=== PATIENT | female | born 1980 | race Caucasian/White ===

== ENCOUNTER 2025-01-05 17:03 | Emergency (ER) | payer OTHER, SELFPAY ==
--- NOTE | ~2025-01-05 | XR_ITS ---
CLINICAL HISTORY: pain, injury 3 view right elbow Comparison: None Findings: Bones intact. No dislocations. No significant arthritic change or erosions. No joint effusion. No radiopaque foreign body. IMPRESSION: 1. No acute findings This document has been electronically signed by: Lindsey Suero MD on 01/05/2025 18:51:37
[2025-01-05 17:57] VITALS: BP 144/95; PULSE 102; RESP 18; TEMP 37.2; O2SAT 96; BMI 24.5
--- NOTE | 2025-01-05 18:01 | ED_ITS ---
HPI - General Adult General Chief complaint: Animal Bite Stated complaint: right arm; right hand wound dog bite Time Seen by Provider: 01/05/25 20:31 Source: patient Mode of arrival: ambulatory Limitations: no limitations History of Present Illness ED Provider: Hilary Arias PA-C HPI narrative: Patient is a 44 year old assigned female at with no reported medical history presenting to the emergency department today with right elbow pain. Patient states that her dog was attached by another dog who she is unfamiliar with. Patient states that she attempted to separate them and got scratched and bit by the dog to her right elbow / inner arm and lower arm. Patient states that she is not sure when her last tetanus shot was. Patient denies any dizziness, lightheadedness, abdominal pain, nausea, vomiting, fever, chills, blurry vision, double vision, loss of vision, chest pain, difficulty breathing, shortness of breath, back pain, night sweats, pain with urination, increased urinary frequency, increased urinary urgency, blood in her urine or stool, syncope or a near syncopal episode, bowel incontinence, bladder incontinence, or any other complaints at this time. Location: right and upper extremity Relieving factors: none Exacerbating factors: none Associated symptoms: denies other symptoms Treatments prior to arrival: none Related Data Previous Rx's ?Medication ?Instructions ?Recorded amoxicillin 875 mg-potassium 1 tab PO BID 10 days #20 tabs 01/05/25 clavulanate 125 mg tablet Allergies Allergy/AdvReac Type Severity Reaction Status Date / Time No Known Allergies Allergy Verified 01/05/25 17:59 [No Known Allergies*] Review of Systems Constitutional: Constitutional: Reports no additional constitutional complaints, Denies chills, Denies fever(s) and Denies night sweats Eyes: Eyes: Reports no additional eye complaints, Denies blurry vision, Denies change in vision, Denies diplopia, Denies eye discharge, Denies loss of vision and Denies eye pain ENT: Denies dizziness Cardiovascular: Cardiovascular: Reports no additional cardiovascular complaints, Denies chest pain, Denies lightheadedness, Denies Loss of Consciousness and Denies dyspnea Respiratory: Respiratory: Reports no additional respiratory complaints and Denies dyspnea Gastrointestinal: Gastrointestinal: Reports no additional gastrointestinal complaints, Denies abdominal pain, Denies melena, Denies hematochezia, Denies change in bowel habits and Denies change in stool character Genitourinary: Genitourinary: Denies hematuria, Denies urinary frequency, Denies dysuria, Denies urinary incontinence, Denies urinary hesitancy and Denies urinary urgency Musculoskeletal: Musculoskeletal: Reports no additional musculoskeletal complaints, Denies numbness and Denies tingling Comments: dog bite / scratches to the right upper and lower arm + elbow Neurologic: Denies dizziness, Denies loss of vision, Denies numbness and Denies tingling Psychiatric: Psychiatric: Reports no additional psychiatric complaints Endocrine: Endocrine: Reports no additional endocrine complaints Hematologic/Lymphatic: Hematologic/Lymphatic: Reports no additional hematologic/lymphatic complaints Allergic/Immunologic: Allergic/Immunologic: Reports no additional allergic/immunologic complaints PMF Past Medical History Attestation statement: The following information was validated with the patient. Source: old records reviewed and nursing notes reviewed Social History Social History Alcohol intake: current Alcohol intake frequency: a few times a week Smoked in Last 30 Days: No Use of substances other than those prescribed or required for medical reasons: No Advance Directives: No Advance Directives Information Provided: No Physical Exam ED Vital Signs: Vital Signs - 24 hr 01/05/25 17:57 01/05/25 20:52 01/05/25 21:41 Temperature 99.0 F 98.7 F 98.7 F Pulse Rate 102 H 82 82 Respiratory Rate 18 20 20 Blood Pressure 144/95 H 172/102 H 172/102 H Pulse Oximetry 96 99 99 Oxygen Delivery Method Room Air Room Air BMI result Body Mass Index 24.5 Const General: cooperative, no acute distress, alert and awake Nutritional Appearance: well nourished Orientation/consciousness: patient oriented x3 Limitations: no limitations [facility] Head: Yes normal to inspection and Yes atraumatic Ears: hearing grossly normal bilaterally and external ears normal General nose exam: Normal external nose present, no nasal discharge noted and no epistaxis Face and sinus: Yes normal facial exam, No abrasion and No laceration Mouth: Normal oral and palatal mucosa present, no drooling and no muffled voice Eyes General: appearance normal, both eyes and all related structures Periorbital: periorbital findings normal Eyelids: Yes eyelids normal Conjunctivae: conjunctivae normal Pupils: Equal, round and reactive pupils present EOM: EOMs intact bilaterally Neck Neck: Yes normal visual inspection, Yes full ROM and Yes no lymphadenopathy Chest Chest palpation & inspection: normal inspection of the chest Resp Effort & Inspection: normal respiratory effort and able to speak in complete sentences GI Inspection: Yes normal to inspection Neuro General: patient oriented x3, moves all extremities and CN's II-XI intact bilaterally Cranial nerves: Yes Equal, round and reactive pupils present Cognition (Neuro): normal cognition Extrem Other: multiple superficial scratches to the dorsal aspect of the right forearm small puncture wound present to the medial aspect of the right upper arm just superior of the right elbow General: Yes full ROM and Yes capillary refill normal Psych Appearance: grossly normal Mental Status: mental status grossly normal Affect: normal affect Attitude: cooperative Thought process: Normal thought process present Thought content: Normal thought content present Insight: Good insight present (Psych) Course Course Course Narrative: RME performed by Hilary Arias PA-C. Patient is a 44 year old assigned female at presenting to the emergency department with right arm pain. Patient states she split up her dog and a neighbor dog got into it and she had to split them apart and got bit and scratched on her right elbow. Patient states that she does not know the shot status of the other dog and she does not know her last tetanus. Detailed physical exam and review of systems are deferred to the book trimmer. Imaging ordered. Patient placed back in the waiting room pending room availability and results. Medications Administered Discontinued Medications Generic Name Dose Route Start Last Admin Trade Name Freq PRN Reason Stop Dose Admin Amoxicillin/Clavulanate Potassium 875 mg 01/05/25 20:31 01/05/25 21:22 Amoxicillin/Potassium Clav 875 Mg Tablet PO 01/05/25 20:32 875 mg ONCE ONE Administration Diphtheria/Tetanus/Acell Pertussis 0.5 ml 01/05/25 18:02 01/05/25 21:21 Diphth,Pertus(Acell),Tet Adult 0.5 Ml Syringe IM 01/05/25 18:03 0.5 ml .ONCE ONE Administration Rabies Immune Globulin 1,418 unit 01/05/25 20:31 01/05/25 21:12 Rabies Immune Globulin/Pf 900 Unit/3 Ml Vial 20 unit/kg (1418 unit) 01/05/25 20:32 1,418 unit IM Administration ONCE ONE Rabies Vaccine 1 ml 01/05/25 20:31 01/05/25 21:25 Rabies Vaccine (Pcec)/Pf 1 Ml Vial IM 01/05/25 20:32 1 ml .ONCE ONE Administration Medical Decision Making Medical Decision Making MDM Narrative: Patient is a 44 year old assigned female at with no reported medical history presenting to the emergency department today with right elbow pain. Patient's physical exam was as noted in the physical exam portion of this note. Patient's right elbow x-ray showed no acute process. I explained my physical exam findings as well as all test results to the patient. I answered all questions asked by the patient. Patient's right upper extremity PMS was present and intact. Patient's puncture wound was small and not gaping. Patient's wounds were thoroughly washed. Patient was given rabies + tetanus prophylaxis / vaccination. I stressed the importance of the patient taking her medication as directed (either prescribed or as the over the counter packaging recommends). I stressed the importance of the patient following up with her primary care provider. I stressed the importance of the patient returning to the emergency department immediately if her symptoms were to worsen or if she were to develop any dizziness, shortness of breath, difficulty breathing, chest pain, blurry vision, loss of vision, nausea, vomiting, abdominal pain, fever, chills, back pain, or any other complaints. Patient verbalized agreement and understanding with this treatment plan and discharge. Differential Diagnosis Differential Diagnoses: The differential diagnosis associated with the presentation includes Right forearm pain Right arm pain Dog bite Dog scratch Admission/Observation Consideration of admission/observation: Escalation of care including admission/observation considered Patient would have been admitted to the hospital had her work up had any findings where hospital admission was appropriate and her clinical presentation warranted hospital admission. Independent Interpretation I performed an independent interpretation of an: Plain X-Ray Interpretation: My interpretation is in agreement with the radiologist's impression of this imaging study. CLINICAL HISTORY: pain, injury 3 view right elbow Comparison: None Findings: Bones intact. No dislocations. No significant arthritic change or erosions. No joint effusion. No radiopaque foreign body. IMPRESSION: 1. No acute findings This document has been electronically signed by: Lindsey Suero MD on 01/05/2025 18:51:37 Dictated By: Lindsey Suero MD Signed By: Electronically signed by Lindsey Suero MD 01/05/25 1687 Radiology Impression Discussion of test interpretation with radiology: I have reviewed the radiologist's reading. Prescription Management I considered prescription management with: Antibiotic (patient prescribed a prophylactic antibiotic) Discharge Plan Discharge Clinical Impression: Rabies exposure, Dog bite Patient Disposition: Home, Self-Care Instructions: Animal Bite (ED), Rabies (ED) Additional Instructions: Take your antibiotic as prescribed. Keep the wound clean. Do NOT soak the affected area. Follow up with your primary care provider. Return to the emergency department immediately if your symptoms worsen or if you develop any numbness, tingling, dizziness, shortness of breath, difficulty breathing, chest pain, blurry vision, loss of vision, nausea, vomiting, abdominal pain, fever, chills, back pain, or any other complaints. You should get a call from the Infusion Center to schedule an appointment to receive the remainder of your required Rabies Vaccines. You will need a total of 3 more injections. If for some reason you do not receive a call from the infusion center - please call them at [phone]. Follow up with your primary care provider after completion of the vaccine to have a titer drawn to ensure the vaccines effectiveness. Please see the information below about our Patient Portal. If you are not yet enrolled in the [facility] Patient Portal, you will receive an enrollment email invitation following your visit to any [facility] care setting. You may also self-enroll in the Patient Portal by visiting our website: [email or web address] The following information is required to access the Patient Portal: - Your [facility] Medical Record Number - Your personal home email address (must match what is in your electronic medical record, Registration staff can assist with this) - Name - Date of Capabilities of the Patient Portal: - Message some providers - View upcoming appointments - Access your health summary, medical history, and visit history - View current conditions and allergies - View procedure and lab results - View your medications, including guidelines, side effects, and precautions - Complete pre-appointment questionnaires requested by your provider - Ready summary reports of your office visits and procedures To access the Patient Portal Mobile Mami, follow these directions: - Search [employer] in the Mami Store or [employer] Store - Download the Mami - Search for [facility] - Enter your login/password Prescriptions: New amoxicillin-pot clavulanate 875-125 mg tablet 1 tab PO BID 10 Days Qty: 20 0RF Referrals: Parrish Rice III, MD [Primary Care Provider] - Interventions: ED Discharge Assessment Last Done: 01/05/25 21:41 Discharge Date/Time: 01/05/25 21:42 Print Language: Turkish
--- OUTSIDE RECORDS SUMMARY | 2025-01-05 20:24 | XMS_ITS | Clinical Summary ---
Author Organization [facility] Address [address] [place] [address] Care Team Providers Care Contour Band Saw Operator Vertical Name Role Phone Parrish Rice MD Primary Care Provider [phone] Allergies No known active allergies Medications Medication Sig Dispensed Refills Start Date End Date Status sertraline (ZOLOFT) 50 MG tablet Take 50 mg by mouth daily. 0 Active traZODone (DESYREL) 50 MG tablet Take 50 mg by mouth every night at bedtime. 0 Active hydrOXYzine (ATARAX) 50 MG tablet Take 50 mg by mouth 3 (three) times a day as needed. 0 Active Selenium Sulfide 2.25 % SHAM Apply topically. 0 Active amLODIPine (NORVASC) tablet 2.5 mg Take 2.5 mg by mouth daily. 0 Active Active Problems No known active problems Social History Tobacco Use Types Packs/Day Years Used Date Smoking Tobacco: Every Day Smokeless Tobacco: Never Alcohol Use Standard Drinks/Week Comments Yes 0 (1 standard drink = 0.6 oz pur e alcohol) Sex and Gender Information Value Date Recorded Sex Assigned at Not on file Gender Identity Not on file Sexual Orientation Not on file Job Start Date Occupation Industry Not on file Not on file Not on file Last Filed Vital Signs Vital Sign Reading Time Taken Comments Blood Pressure 152/79 02/24/2022 2:14 PM EDT Pulse 92 02/24/2022 2:14 PM EDT Temperature 36.8 ??C (98.2 ??F) 02/24/2022 2:14 PM ED T Respiratory Rate - - Oxygen Saturation 100% 02/24/2022 2:14 PM EDT Inhaled Oxygen Concentration - - Weight 56.7 kg (125 lb) 02/24/2022 2:14 PM EDT Height 167.6 cm (5' 6 ) 04/01/2020 2:57 PM EDT Body Mass Index 20.18 04/01/2020 2:57 PM EDT Plan of Treatment Health Maintenance Due Date Last Done Comments Hepatitis B Vaccines (1 of 3 - 3-dose series) 1982 Hepatitis C Screening 1982 Pneumococcal Vaccine (1 of 2 - PCV) 1988 Depression Screening 1994 Preventative Health Evaluation 2000 DTap / Tdap / Td (1 - Tdap) 2001 Cervical Cancer Screening (Pap Smear) 2003 COVID-19 Vaccine (4 - 2023-2 5 season) 2024 09/02/2021, 02/13/2021, 01/23/2021 Influenza Vaccine (#1) 2024 RSV Ped < 20 months Aged Out No longe r eligible based on patient's age to complete this topic Care Teams Contour Band Saw Operator Vertical Relationship Specialty Start Date End Date Parrish Rice MD PCP - General Internal Medicine 02/28/20
--- OUTSIDE RECORDS SUMMARY | 2025-01-05 20:24 | XMS_ITS | Clinical Summary ---
Author Organization [facility] [address] [place] [address] [place] [phone] Phone Care Team Providers Care Dockworker Name Role Phone Parrish Rice MD Primary Care Provider [phone] Allergies No known active allergies Medications bisacodyL (DULCOLAX) 5 mg EC tablet Take 1 tablet (5 mg total) by mouth 1 (one) time each day if needed for constipation. Take 2 tabs by mouth right before beginning bowel prep. Follow instructions given by office for timing. 12/23/19 24 Active hydrOXYzine HCL (ATARAX) 25 mg tablet Take 1 tablet (25 mg total) by mouth 3 (three) times a day if needed for anxiety. 03/01/20 24 Active selenium sulfide (SELSUN) 2.5 % lotion Apply topically 1 (one) time each day if needed. 12/03/19 23 Active traZODone (DESYREL) 100 mg tablet Take 1 tablet (100 mg total) by mouth at bedtime as needed for sleep. 03/01/20 24 Active sertraline (ZOLOFT) 100 mg tablet TAKE 1 TABLET BY MOUTH EVERY DAY 90 tablet 1 09/13/20 24 Active amLODIPine (NORVASC) 5 mg tablet TAKE 1 TABLET BY MOUTH EVERY DAY 90 tablet 1 09/13/20 24 Active QUEtiapine (SEROquel) 25 mg tablet TAKE 2 TABLETS BY MOUTH AT BEDTIME. 180 tablet 1 12/26/19 25 Active QUEtiapine (SEROquel) 25 mg tablet Take 2 tablets (50 mg total) by mouth at bedtime. 180 tablet 09/06/20 24 025 Discontinued Active Problems Problem Noted Date Diagnosed Date Nexplanon in place 07/28/2022 Overview (07/19/2024): Last Assessment & Plan: I reviewed the x-rays of the left arm with the patient, inform the patient that the Nexplanon device is not present based on x-ray. I discussed that rarely, the Nexplanon can migrate and therefore I recommend chest x-ray for further evaluation. The patient became very emotional but did agree to complete the x-ray. Secondary oligomenorrhea 07/28/2022 Overview (07/19/2024): Last Assessment & Plan: Today we discussed causes of secondary oligo and amenorrhea including , thyroid disease, PCOS, hyperprolactinemia, and ovarian failure. HCG, TSH, testosterone, and prolactin ordered. The patient was instructed to follow-up to discuss x-ray and lab results in 2-3 weeks. Papanicolaou smear of cervix with low grade squamous intraepithelial lesion (LGSIL) 01/30/2022 Overview (07/19/2024): 01/15/2022 LSIL HR HPV neg Hypertension 12/29/2021 Alcohol abuse, in remission 12/08/2021 Erythrocytosis 12/08/2021 Insomnia 06/12/2020 Anxiety and depression 11/21/2019 PTSD (post-traumatic stress disorder) 11/21/2019 Seasonal affective disorder 11/21/2019 Anxiety 01/13/2013 Immunizations Name Administration Dates Next Due Influenza Quadravalent, MDCK , 0.5ml, preservative free (Flucelvax) 6mo and older 08/02/2023 Influenza Quadravalent, MDCK , 0.5ml, with preservative (Flucelvax) 6mo and older 09/21/2022 Pfizer (ages 12 & older) Bivalent, COVID-19 06/2022 Td Tetanus diptheria (Tdvax) 7yo and older 11/13 Surgical History Surgery Date Site/Laterality Comments WISDOM TOOTH EXTRACTION PROCEDURE: HISTORICAL WISDOM TEETH EXTRACTION; COMMENT: 3rd molar Medical History Medical History Date Comments Depression DX:Depression Anxiety DX:Anxiety Seasonal affective disorder (CMS/HCC) DX:Seasonal affective disorder (HCC) PTSD (post-traumatic stress disorder) DX:PTSD (post-traumatic stress disorder) Insomnia DX:Insomnia Family History Medical History Relation Name Comments Brain cancer Aunt Other: epilepsy Father Other: Bone Cancer Maternal Grandfather Hypertension Maternal Grandmother Other: laser tx for cervix Mother a lcoholic Breast cancer Neg Hx Ovarian cancer Neg Hx Uterine cancer Neg Hx Relation Name Status Comments Aunt Father Maternal Grandfather Maternal Grandmother Mother Social History Tobacco Use Types Packs/Day Years Used Date Smoking Tobacco: Every Day Cigarettes 0.8 27.3 Started: 10/04/1997 Smokeless Tobacco: Never Alcohol Use Standard Drinks/Week Comments Yes 0 (1 standard drink = 0.6 oz pur e alcohol) Comments Unknown Sex and Gender Information Value Date Recorded Sex Assigned at Not on file Legal Sex Female 10:10 PM EST Gender Identity Not on file Sexual Orientation Not on file Obstetrics History Last Filed Vital Signs Vital Sign Reading Time Taken Comments Blood Pressure 138/96 03/02/2024 1:17 PM EDT provider will rechk Pulse 88 03/02/2024 1:17 PM EDT Temperature - - Respiratory Rate - - Oxygen Saturation - - Inhaled Oxygen Concentration - - Weight 65.3 kg (144 lb) 03/02/2024 1:17 PM EDT Height 170.2 cm (5' 7 ) 03/02/2024 1:17 PM EDT Body Mass Index 22.55 03/02/2024 1:17 PM EDT Plan of Treatment Upcoming Encounters Date Type Department Care Team (Late st Contact Info) Description 01/18/2025 8:10 AM EDT Appointment Radiology Department - [address] [phone] 07/05/2025 1:00 PM EDT Office Visit Adult Medicine [address] [phone] Parrish Rice MD [address] [place] [phone] Health Maintenance Due Date Last Done Comments Hepatitis B Vaccines (1 of 3 - 19+ 3-dose series) 2001 Pneumococcal Vaccine: Pediatrics (0 to 5 Years) and At-Risk Patients (6 to 64 Years) (1 of 2 - PCV) 2001 Social Influencers of Health Screening 09/12/2022 COVID-19 Vaccine ( - season) 2024 08/12/2022, 09/02/2021, 02/13/2021, Additional history exists Influenza Vaccine (#1) 2024 08/02/2023, 2021 Depression Screening 03/02/2025 03/02/2024 Hypertension/CHF/CAD Annual BMP Blood Test 05/09/2025 05/09/2024, 05/09/2024 Breast Cancer Screening 01/06/2026 01/07/2024 DTaP,Tdap,and Td Vaccines (2 - Td or Tdap) 11/13/2026 11/13/2016 Cholesterol Screening (Lipid Panel) 08/09/2028 08/09/2023 Cervical Cancer Screening: HPV 08/11/2028 08/11/2023 HIV Screening Completed 01/19/2022 Hepatitis C Screening Completed 01/19/2022 HIB Vaccines Aged Out No longer eligi ble based on patient's age to complete this topic HPV Vaccines Aged Out No longer eligi ble based on patient's age to complete this topic Hepatitis A Vaccines Aged Out No long er eligible based on patient's age to complete this topic IPV Vaccines Aged Out No longer eligi ble based on patient's age to complete this topic MMR Vaccines Aged Out No longer eligi ble based on patient's age to complete this topic Meningococcal ACWY Vaccine Aged Out N o longer eligible based on patient's age to complete this topic Meningococcal B Vacine Aged Out No lo nger eligible based on patient's age to complete this topic RSV Immunization Patients Under 20 months Aged Out No longer eligible based on patient's age to complete this topic Varicella Vaccines Aged Out No longer eligible based on patient's age to complete this topic Procedures Procedure Name Priority Date/Time Associated Diagnosis Comments ANNUAL BMP BLOOD TEST Routine 05/09/2024 DEPRESSION SCREENING Routine 03/02/2024 SCREENING MAMMOGRAPHY BI 2-VIEW BREAST INC CAD Routine 01/07/2024 8:05 AM EDT Essential (primary) hypertension Anxiety disorder, unspecified Depression, unspecified Insomnia, unspecified Nicotine dependence, cigarettes, uncomplicated HPV Routine 08/11/2023 LIPID PANEL Routine 08/09/2023 HEPATITIS C SCREENING Routine 01/19/2022 HIV SCREENING Routine 01/19/2022 from Last 3 Months or Most Recently Relevant to Health Maintenance Results * Annual BMP Blood Test (05/09/2024) Annual BMP Blood Test Abstracted Historical Provider HEALTH MAINTENANCE Final Result * Depression Screening (03/02/2024) Depression Screening Abstracted Historical Provider HEALTH MAINTENANCE Final Result * SCREENING MAMMOGRAPHY BI 2-VIEW BREAST INC CAD (01/07/2024 8:05 AM EDT) Anatomical Region Laterality Modality Radiographic Rebecca ging 08/02/2023 1:39 PM EDT Narrative 01/07/2024 1:16 PM EDT This is a summary report. The complete report is available in the patient's medical record. If you cannot access the medical record, please contact the sending organization for a detailed fax or copy. Full field digital baseline tomosynthesis mammography, reviewed with CAD. The breast tissue is heterogeneously dense, limiting sensitivity. No suspicious mass, architectural distortion or suspicious calcifications are identified. IMPRESSION: : Dense breast tissue, limiting the sensitivity of mammography. No mammographic evidence of malignancy. BIRADS 1-Negative; N. 5 year breast cancer risk assessment 0.6 % Lifetime breast cancer risk assessment 9.8 % Breast cancer risk category Low (<15%) Procedure Note Anna Duncan MD - 05/22/2024 This is a summary report. The complete report is available in thepatient's medical record. If you cannot access the medical record, pleasecontact the sending organization for a detailed fax or copy. Full field digital baseline tomosynthesis mammography, reviewed with CAD.The breast tissue is heterogeneously dense, limiting sensitivity. Nosuspicious mass, architectural distortion or suspicious calcifications areidentified. IMPRESSION: : Dense breast tissue, limiting the sensitivity of mammography. Nomammographic evidence of malignancy. BIRADS 1-Negative; N. 5 year breast cancer risk assessment 0.6 % Lifetime breast cancer risk assessment 9.8 % Breast cancer risk category Low (<15%) Result [facility] Katelyn HARO IMG XR PROCEDURES Final Resul t * Cervical Cancer Screening: HPV (08/11/2023) [facility] Cervical Cancer Screening: HPV Negative, abstracted Result [facility] Provider HEALTH MAINTENANCE Final Result * (ABNORMAL) Lipid panel (08/09/2023) [facility] LDL/HDL Ratio 3 0 - 4 Triglycerides 218(A) 0 - 150 mg/dL Cholesterol 193 0 - 200 mg/dL HDL 72 >=40 mg/dL LDL Cholesterol 78 0 - 100 mg/dL Blood Venous blood specimen / Unknown Result [facility] Provider LAB BLOOD ORDERABLES Katelin l Result * HIV Screening (01/19/2022) [facility] HIV Screening Abstracted Result [facility] Provider HEALTH MAINTENANCE Final Result * Hepatitis C Screening (01/19/2022) [facility] Hepatitis C Screening Abstracted Result [facility] Provider HEALTH MAINTENANCE Final Result from Last 3 Months or Most Recently Relevant to Health Maintenance Insurance [facility] [place] [phone] Care Teams Dockworker Relationship Specialty Start Date End Date Parrish Rice MD [address] [place] [phone] PCP - General Internal Medicine 10/25/12
[2025-01-05 20:52] VITALS: BP 172/102; PULSE 82; RESP 20; TEMP 37.1; O2SAT 99
[2025-01-05] MEDS: Rabies Immune Globulin/PF 900 UNIT/3 ML VIAL 1418 UNIT IM (21:12)
[2025-01-05] MEDS: Diphth,Pertus(ACell),Tet Adult 0.5 ML SYRINGE IM (21:21)
[2025-01-05] MEDS: Amoxicillin/Potassium Clav 875 MG TABLET PO (21:22)
[2025-01-05] MEDS: Rabies Vaccine (PCEC)/PF 1 ML VIAL IM (21:25)
--- NOTE | 2025-01-05 21:37 | PC.NURSE ---
pt medicated according to octavia pt provided with form with dates for next rabies injections animal control form faxed to [facility] animal officer pt verbalized understanding of discharge plan pt ambulatory at discharge
[2025-01-05 21:41] VITALS: BP 172/102; PULSE 82; RESP 20; TEMP 37.1; O2SAT 99
== END 2025-01-05 21:42 | disposition home or self-care (01) ==
PROVIDERS: Emergency Provider Emergency Medicine Emergency Medical Services; PCP Internal Medicine
DX: S51.051A Open bite, right elbow, initial encounter (principal); S51.851A Open bite of right forearm, initial encounter; S41.151A Open bite of right upper arm, initial encounter; W54.0XXA Bitten by dog, initial encounter; Y93.9 Activity, unspecified; Y92.9 Unspecified place or not applicable; Y99.9 Unspecified external cause status; Z23 Encounter for immunization; Z20.3 Contact with and (suspected) exposure to rabies
CPT/HCPCS: 73080; 90375; 90471; 90675; 90715; 96372; 99284

== ENCOUNTER → 2025-01-05 18:02 | Outpatient (BNV) | payer OTHER, SELFPAY | PROVIDERS: PCP Internal Medicine; Visit Provider Radiology Diagnostic Radiology | DX: M25.521 Pain in right elbow (principal) | CPT/HCPCS: 73080 ==

== ENCOUNTER 2025-08-04 18:10 | Inpatient (IN) | payer OTHER, SELFPAY ==
--- NOTE | ~2025-08-04 | US_ITS ---
CLINICAL HISTORY: liver ultrasound, alcoholic hepatitis US abdomen limited Comparison: None provided Findings: The pancreas is not well visualized, obscured by bowel-gas The liver is enlarged with increased echogenicity consistent with hepatic steatosis. There is no intrahepatic bile duct dilatation. The common duct is 5 mm in diameter. The gallbladder contains layering echogenic sludge. There is no sonographic Stack sign. The main portal vein is antegrade. The right kidney is 10.6 cm in length. No ascites. IMPRESSION: Cholelithiasis without findings of cholecystitis. Hepatic steatosis. This document has been electronically signed by: Minh Luu MD on 08/05/2025 12:28:45
[2025-08-04 18:18] VITALS: BP 117/84; BP 140/90; PULSE 115; PULSE 130; RESP 17; TEMP 36.7; O2SAT 98; BMI 25.8
--- NOTE | 2025-08-04 18:27 | ECG_ITS ---
Test Reason : weakness Blood Pressure : */* mmHG Vent. Rate : 108 BPM Atrial Rate : * BPM P-R Int : * ms QRS Dur : 88 ms QT Int : 502 ms P-R-T Axes : * 72 76 degrees QTcB Int : 672 ms Sinus tachycardia cannot exclude old Anterior infarct , age undetermined ST depression infeior and anterolateral leads Prolonged QT Abnormal ECG No previous ECGs available Referred By: Marion García Electronically Signed By: JOSE CALLES
[2025-08-04 18:28] VITALS: BP 117/84; PULSE 115; RESP 17; TEMP 36.7; O2SAT 98
[2025-08-04] MEDS: diazePAM 10 MG/2 ML CARTRIDGE 5 MG IVPUSH (18:41)
[2025-08-04] MEDS: Thiamine HCL 200 MG in 0.9 % Sodium Chloride 100 ML 204 MG IV (18:45)
[2025-08-04] MEDS: Lactated Ringers 1,000 ML 999 ML IV (18:48)
[2025-08-04] MEDS: Magnesium Sulfate/H2O 2 GM/50 ML PIGGYBACK IV (18:53)
--- OUTSIDE RECORDS SUMMARY | 2025-08-04 18:56 | XMS_ITS | Clinical Summary ---
Author Organization [facility] Address [address] [place] [address] Care Team Providers Care Program Instructor Name Role Phone Parrish Rice MD Primary Care Provider [phone] Allergies No known active allergies Medications Medication [...] 92 02/24/2022 2:14 PM EDT Temperature 36.8 C (98.2 F) 02/24/2022 2:14 PM EDT Respiratory Rate - - Oxygen Saturation 100% [...] (Pap Smear) 2003 COVID-19 Vaccine (4 - 2024-2 6 season) 2025 09/02/2021, 02/13/2021, 01/23/2021 Influenza Vaccine (#1) 2025 RSV Ped < 20 months Aged Out No longe r eligible based on patient's age to complete this topic Care Teams Program Instructor Relationship Specialty Start Date End Date Parrish Rice MD PCP - General Internal Medicine 02/28/20
--- OUTSIDE RECORDS SUMMARY | 2025-08-04 18:56 | XMS_ITS | Clinical Summary ---
Author Organization [facility] [address] [facility] Address [address] [place] [address] Phone Care Team Providers Care Aquaculture Farm Manager Name Role Phone Parrish Rice MD Primary Care Provider [phone] Allergies No known active allergies Medications diclofenac (VOLTAREN) 1 % topical gel APPLY 2 GRAM FOUR TIMES DAILY TO AFFECTED JOINT 100 g 5 5 Active hydrOXYzine HCL (ATARAX) 25 mg tablet TAKE 1 TABLET (25 MG TOTAL) BY MOUTH 3 TIMES A DAY NEEDED FOR ANXIETY 90 tablet 5 Active amLODIPine (NORVASC) 5 mg tablet Take 1 tablet (5 mg total) by mouth 1 (one) time each day. 90 tablet 1 5 Active sertraline (ZOLOFT) 100 mg tablet Take 1 tablet (100 mg total) by mouth 1 (one) time each day. 90 tablet 1 5 Active selenium sulfide (SELSUN) 2.5 % lotion Apply topically 1 (one) time each day if needed for itching, irritation or dandruff. 118 mL 1 5 Active traZODone (DESYREL) 100 mg tablet Take 1 tablet (100 mg total) by mouth at bedtime as needed for sleep. 30 tablet 1 5 Active QUEtiapine (SEROquel) 25 mg tablet TAKE 3 TABLETS BY MOUTH AT BEDTIME. 270 tablet 5 Active Active Problems Problem Noted Date Diagnosed Date [...] (post-traumatic stress disorder) 11/21/2019 Seasonal affective disorder ([facility] V24) 2019 Anxiety 01/13/2013 Immunizations Immunization Administration Dates Next Due Human Rabies, Human Diploid Cell Culture, (Imovax) 01/26/2025,01/15/2025,01/11/2025 Influenza Quadravalent, MDCK , 0.5ml, preservative free (Flucelvax) 6mo and older 08/02/2023 Influenza Quadravalent, MDCK , 0.5ml, with preservative (Flucelvax) 6mo and older 09/21/2022 Pfizer (ages 12 & older) Bivalent, COVID-19 11/0 06/2022 Td Tetanus diptheria (Tdvax) 7yo and older 11/13 Surgical History Surgery Date Site/Laterality Comments WISDOM TOOTH EXTRACTION PROCEDURE: HISTORICAL WISDOM TEETH EXTRACTION; COMMENT: 3rd molar Medical History Medical History Date Comments Depression DX:Depression Anxiety DX:Anxiety Seasonal affective disorder (CMS/HCC V24) DX:Seasonal affective disorder (HCC) PTSD (post-traumatic stress [...] Date Smoking Tobacco: Every Day Cigarettes 0.8 27.8 Started: 10/04/1997 Smokeless Tobacco: Never Tobacco Cessation:Ready to Q uit: Not Asked; Counseling Given: Not Answered Alcohol Use Standard Drinks/Week Comments Yes 0 (1 standard drink = 0.6 oz pur e alcohol) Comments No Sex and Gender Information Value Date Recorded Sex Assigned at Not on file Legal Sex Female 10:10 PM EST Gender Identity Not on file Sexual Orientation Not on file Obstetrics History Last Filed Vital Signs Vital Sign Reading Time Taken Comments Blood Pressure 128/82 03/30/2025 10:11 AM EDT Pulse 104 03/30/2025 10:11 AM EDT Temperature 35.8 C (96.5 F) 03/30/2025 10:11 AM EDT Respiratory Rate 16 03/30/2025 10:11 AM EDT Oxygen Saturation 97% 03/30/2025 10:11 AM EDT Inhaled Oxygen Concentration - - Weight 71.2 kg (157 lb) 03/30/2025 10:11 AM EDT Height 170.2 cm (5' 7 ) 03/30/2025 10:11 AM EDT Body Mass Index 24.59 03/30/2025 10:11 AM EDT Plan of Treatment Health Maintenance Due Date Last Done Comments Hepatitis A Vaccines (1 of 2 - Risk 2-dose series) 2001 Hepatitis B Vaccines (1 of 3 - 19+ 3-dose series) 2001 Pneumococcal Vaccine: Pediatrics (0 to 5 Years) and At-Risk Patients (6 to 49 Years) (1 of 2 - PCV) 2001 HPV Vaccines (1 - 3-dose SCDM series) 2009 Social Influencers of Health Screening 09/12/2022 Depression Screening 10/04/2024 03/02/2024 Hypertension/CHF/CAD Annual BMP Blood Test 05/09/2025 05/09/2024, 05/09/2024 COVID-19 Vaccine ( season) 2025 08/12/2022, 09/02/2021, 02/13/2021, Additional history exists Influenza Vaccine (#1) 2025 08/02/2023, 2021 Breast Cancer Screening 01/06/2026 01/07/2024 Cholesterol Screening (Lipid Panel) 08/09/2028 08/09/2023 Cervical Cancer Screening: HPV 08/11/2028 08/11/2023 DTaP,Tdap,and Td Vaccines (3 - Td or Tdap) 01/05/2035 01/05/2025, 11/13/2016 RSV Immunization Adult Patients (1 - 1-dose 75+ series) 2057 HIV Screening Completed 01/19/2022 Hepatitis C Screening [...] age to complete this topic Meningococcal B Vaccine Aged Out No l onger eligible based on patient's age to complete [...] Test (05/09/2024) Annual BMP Blood Test Abstracted us Historical Provider MD HEALTH MAINTENANCE Final Result * Depression Screening (03/02/2024) Depression Screening Abstracted Historical Provider MD HEALTH MAINTENANCE Final Result * SCREENING MAMMOGRAPHY [...] Breast cancer risk category Low (<15%) Result [facility] Katelyn Garcia FIRER BISQUE KILN IMG XR PROCEDURES Final Resul t * Cervical Cancer Screening: HPV (08/11/2023) [facility] Cervical Cancer Screening: HPV Negative, abstracted Result [facility] Provider HEALTH MAINTENANCE Final Result * (ABNORMAL) Lipid panel (08/09/2023) [facility] LDL/HDL Ratio 3 0 - 4 Triglycerides 218(A) 0 - 150 mg/dL Cholesterol 193 0 - 200 mg/dL HDL 72 >=40 mg/dL LDL Cholesterol 78 0 - 100 mg/dL Blood Venous blood specimen / Unknown Result [facility] Provider LAB BLOOD ORDERABLES Katelin l Result * HIV Screening (01/19/2022) [facility] HIV Screening Abstracted Result [facility] Provider HEALTH MAINTENANCE Final Result * Hepatitis C Screening (01/19/2022) [facility] Hepatitis C Screening Abstracted Result [facility] Provider HEALTH MAINTENANCE Final Result from Last 3 Months or Most Recently Relevant to Health Maintenance Insurance [facility] HE[employer] PLAN [place] [id number] Care Teams Aquaculture Farm Manager Relationship Specialty Start Date End Date Parrish Rice MD PCP - General Internal Medicine 10/25/12
[2025-08-04 18:57] LABS: MANUAL DIFF FLAG NO
--- OUTSIDE RECORDS SUMMARY | 2025-08-04 18:57 | XMS_ITS ---
Author Name [facility] Organization Unknown Care Team Organization Name Specialty Phone Email Start Date End Da te [facility] RAVI LEIVA Primary Care 08/11/2022 4
[2025-08-04 19:02] VITALS: BP 110/74; PULSE 98; RESP 18; O2SAT 96
[2025-08-04 19:03] LABS: OBS Int Ctl Valid YES; OBS1 NEGATIVE (NEGATIVE)
[2025-08-04 19:07] LABS: INTERNATIONAL NORM RATIO 1.1 (0.9-1.1); Prothrombin Time 12.5 SEC (10.9-12.4)
--- NOTE | 2025-08-04 19:16 | ED.ALCOHOL ---
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 She reports she feels nauseated, weak, shaky, and has dark stools. She has not had a seizure and is not hallucinating. She denies a prior history of seizures. She has not fallen or hit her head. She notes she is trying to cut down and drank a 1/2 pint today but feels worse. She cannot eat or drink. She feels her heart is racing but she has no pain. She called 911 as she felt her HR was up. She has no CP/SOB. She has no hx of GIB and she notes she has had issues with ETOH since age 31. She has no SI/HI. She blames an illness with her father and her unable to go see him which triggered her heavy drinking. MD complaint: alcohol withdrawal and desires rehab Last drink: Hours (ago) Chronic alcohol use: Yes Previous visits for alcohol intoxication: Yes Recent trauma: No Associated symptoms: nausea, tremors, melena, depression and other Treatments prior to arrival: none Related Data Previous Rx's ?Medication ?Instructions ?Recorded amoxicillin 875 mg-potassium 1 tab PO BID 10 days #20 tabs 01/05/25 clavulanate 125 mg tablet Allergies Allergy/AdvReac Type Severity Reaction Status Date / Time No Known Allergies (No Known Allergy Verified 08/04/25 18:23 Allergies*) Review of Systems Review of Systems: Constitutional : No Fever, No Chills, No Fatigue ENT/Mouth : No sore throat, No Rhinorrhea Eyes: No Eye Pain, No Swelling, No Redness Cardiovascular : No Chest Pain, No SOB, No Dyspnea on Exertion, pos palpitations Respiratory : No Cough, No Sputum Gastrointestinal : pos Nausea, pos Vomiting, No Diarrhea, No abdominal Pain Genitourinary : No Dysuria, No Urinary Frequency, No Hematuria, Musculoskeletal : No joint pain, No Myalgias, No Joint Swelling Skin : No Skin Lesions, No rash Neuro : No Weakness, No Numbness, No Dizziness, no Headache All other systems reviewed and are negative [facility] Past Medical History Attestation statement: The following information was validated with the patient. Source: old records reviewed Medical History HTN (hypertension) Alcohol abuse PTSD (post-traumatic stress disorder) Social History Social History Alcohol intake: current Alcohol intake frequency: 3 or more drinks per day Alcohol type: hard liquor Smoked in Last 30 Days: Yes Use of substances other than those prescribed or required for medical reasons: Yes Substance Use Type: Marijuana Substance Use Frequency: Occasionally Advance Directives: No Advance Directives Information Provided: No Do you have a plan to hurt others: No Plan Patient : No Physical Exam ED Vital Signs: Vital Signs - 24 hr 08/04/25 18:18 08/04/25 18:28 08/04/25 19:02 Temperature 98.1 F 98.1 F Pulse Rate 115 H 115 H 98 Respiratory Rate 17 17 18 Blood Pressure 117/84 117/84 110/74 Pulse Oximetry 98 98 96 Oxygen Delivery Method Room Air Room Air Room Air BMI result Body Mass Index 25.8 Appearance: Alert. Oriented X3. anxious mild acute distress. Eyes: Pupils equal, round and reactive to light. ENT: Pharynx dry MM. tongue fasciculations Neck: Normal inspection. Neck supple. CVS: tachycardic heart rate and rhythm. Pulses normal. Respiratory: No respiratory distress. Breath sounds normal. Abdomen: Soft and nontender. light brown stool rectal exam Skin: Skin warm and dry. pale skin color. Normal skin turgor. Extremities: No lower extremity edema. No calf ttp Neuro: Oriented X 3. No motor deficit. No sensory deficit. CN2-12 intact mild bilateral tremors noted Course Course Course Narrative: qt 575 Medical Decision Making Medical Decision Making MDM Narrative: 45 yo female with PTSD, anxiety, alcohol use disorder here with c/o shaking and tremors with nausea. She has prolonged qtc on tele I have ordered stat magnesium, IV thiamine, IVF and IV valium. She will be started on phenobarb as well. I suspect ETOH withdrawal and lyte abnormality. Planned to admit on phenobarb. Will start on protonix for melena neg for blood on exam today and H/H stable. She has not had hematemesis Differential Diagnosis Differential Diagnoses: The differential diagnosis associated with the presentation includes ETOH abuse, withdrawal, anemia, dehydration, lyte abnormality Admission/Observation Consideration of admission/observation: Escalation of care including admission/observation considered admit for lyte monitoring, etoh withdrawal Consult Healthcare Provider Management of the patient was discussed with: Hospitalist (will admit) Lab Data MDM Lab Attestation statement: I reviewed the patient's lab results. 08/04/25 18:51 08/04/25 18:51 Labs: Lab Results 08/04/25 08/04/25 Range/Units 18:51 19:47 WBC 4.9 (4.8-10.8) X10*3/uL RBC 4.22 (4.20-5.50) X10*6/uL Hgb 13.2 (12.0-16.0) g/dl Hct 37.3 (37.0-47.0) % MCV 88.4 (80.0-98.0) fL MCH 31.3 (27.0-33.0) pg MCHC 35.4 H (31.0-35.0) g/dl RDW 13.4 (11.0-16.0) % Plt Count 171 (160-400) X10*3/uL MPV 9.9 (9.4-12.3) fL Immature Gran % (Auto) 0.4 (0.0-0.4) % Neut % (Auto) 62.6 (45-73) % Lymph % (Auto) 22.1 (20-40) % [place] % (Auto) 14.1 H (2-11) % Eos % (Auto) 0.4 (0-4) % Baso % (Auto) 0.4 (0-2) % Lymph # (Auto) 1.1 L (1.2-4.9) X10*3/uL [place] # (Auto) 0.7 (0.1-1.2) X10*3/uL Eos # (Auto) 0.0 (0.0-0.4) X10*3/uL Baso # (Auto) 0.0 (0.0-0.2) X10*3/uL Abs Immat Gran (auto) 0.02 (0.00-0.03) X10*3/uL Absolute Neuts (auto) 3.1 (2.0-8.3) x10*3/uL Absolute Nucleated RBC 0.020 H (0.0-0.012) X10*3/uL Nucleated RBC % (auto) 0.4 H (0.0-0.2) /100WBC PT 12.5 H (10.9-12.4) SEC INR 1.1 (0.9-1.1) Sodium 134 L (135-145) mmol/L Potassium 2.6 L* (3.3-5.1) mmol/L Chloride 97 (96-108) mmol/L Carbon Dioxide 16 L (22-29) mmol/L Anion Gap 24 H (12-20) BUN 6 L (9-16) mg/dL Creatinine 0.63 (0.5-1.4) mg/dL Estim Creat Clear Calc 121.4 Estimated GFR > 60 Random Glucose 114 (60-115) mg/dL Calcium 8.7 (8.4-10.2) mg/dL Magnesium 1.5 L (1.6-2.6) mg/dL Total Bilirubin 1.3 H (0.0-1.0) mg/dL Direct Bilirubin 0.7 H (0.0-0.5) mg/dL AST 225 H (5-31) U/L ALT 72 H (0-31) U/L Alkaline Phosphatase 137 H (39-117) U/L Troponin I High Sens 7.1 (<3.5-17.0) ng/L Total Protein 6.3 L (6.5-8.0) g/dL Albumin 3.7 (3.5-5.0) g/dL Lipase 71 (8-78) U/L Beta HCG, Quant 3 mIU/mL Urine Color Yellow Urine Appearance Clear Urine pH 7.0 (5.0-9.0) Ur Specific [place] <= 1.005 (1.005-1.025) Urine Protein Negative (Neg-Trace) mg/dL Urine Glucose (UA) Negative (Negative) mg/dL Urine Ketones Negative (Negative) mg/dL Urine Blood Negative (Negative) Urine Nitrite Negative (Negative) Ur Leukocyte Esterase Negative (Negative) Stool Occult Blood NEGATIVE (NEGATIVE) Urine Opiates Screen Not Detected (Not Detect) Ur Buprenorphine Scrn Not Detected (Not Detect) ng/mL Ur Oxycodone Screen Not Detected (Not Detect) ng/mL Urine Methadone Screen Not Detected (Not Detect) ng/mL Urine Fentanyl Screen Not Detected (Not Detect) Ur Barbiturates Screen Not Detected (Not Detect) Ur Phencyclidine Scrn Not Detected (Not Detect) Ur Amphetamines Screen Not Detected (Not Detect) U Benzodiazepines Scrn Not Detected (Not Detect) Urine Cocaine Screen Not Detected (Not Detect) U Marijuana (THC) Screen Not Detected (Not Detect) Ethyl Alcohol 211 mg/dL Blood Type O Positive Antibody Screen NEGATIVE Independent Interpretation I performed an independent interpretation of an: EKG Interpretation: Rate: 108 Rhythm: sinus tach [place]: normal Normal P waves. Normal MEGGAN. Normal QRS complex. ST T wave : no LEEANNA, nonspecific ST T wave changes throughout likely due to lyte abnormality qTC: 672 prior studies:qtc prolonged The study has been interpreted contemporaneously by me. EKG #2 Rate: 98 Rhythm: NSR [place]: normal Normal P waves. Normal MEGGAN. Normal QRS complex. ST T wave : nonspecific ST T wave changes throughout due to prolonged qtc qTC: 709 prior studies: prolonged qtc The study has been interpreted contemporaneously by me. EKG#3 Rate: 87 Rhythm: NSR [place]: normal Normal P waves. Normal MEGGAN. Normal QRS complex. ST T wave : nonspecific ST T wave changes, no LEEANNA qTC: 575 prior studies: qtc shortening The study has been interpreted contemporaneously by me. . External Record Review External record reviewed: Outpatient record Social Determinants Patient?s care significantly limited by Social Determinants of Health including: Problems related to primary support group Medications Administered Generic Name Dose Route Start Last Admin Trade Name Freq PRN Reason Stop Dose Admin Potassium Chloride 10 meq in 100 mls @ 100 mls/hr 08/04/25 19:45 08/04/25 21:11 Potassium Chloride/H20 IV 08/04/25 23:44 100 mls/hr Q1H LINDA Administration Sodium Chloride 1,000 mls @ 75 mls/hr 08/04/25 21:15 08/04/25 21:11 Ns IVCONT 75 mls/hr .[id number] LINDA Administration Discontinued Medications Generic Name Dose Route Start Last Admin Trade Name Freq PRN Reason Stop Dose Admin Diazepam 5 mg 08/04/25 18:27 08/04/25 18:41 Diazepam 10 Mg/2 Ml [place] IVPUSH 08/04/25 18:28 5 mg STAT STA Administration Diazepam 7.5 mg 08/04/25 21:49 08/04/25 22:18 Diazepam 10 Mg/2 Ml [place] IVPUSH 08/04/25 21:50 7.5 mg STAT STA Administration Lactated Ringer's 1,000 mls @ 999 mls/hr 08/04/25 18:27 08/04/25 19:03 Lr IV 08/04/25 19:27 999 mls/hr .Q1H1M ONE Infusion Magnesium Sulfate 2 gm in 50 mls @ 25 mls/hr 08/04/25 18:27 08/04/25 19:03 Magnesium Sulfate/H2o IV 08/04/25 20:26 Infused ONCE ONE Infusion Thiamine HCl 200 mg/ Sodium 102 mls @ 204 mls/hr 08/04/25 18:27 08/04/25 18:45 Chloride IV 08/04/25 18:56 204 mls/hr ONCE ONE Administration Pantoprazole Sodium 40 mg 08/04/25 18:27 08/04/25 18:42 Pantoprazole Sodium 40 Mg/10 Ml Vial IVPUSH 08/04/25 18:28 40 mg ONCE ONE Administration Phenobarbital Sodium 246 mg 08/04/25 20:00 08/04/25 20:14 Phenobarbital Sodium 130 Mg/Ml Im Once IM 08/04/25 20:01 246 mg ONCE ONE Administration Potassium Chloride 40 meq 08/04/25 19:32 08/04/25 19:57 Potassium Chloride Er 20 Meq Tab.Er.Prt PO 08/04/25 19:33 40 meq ONCE ONE Administration Procedures Procedure Narrative Procedure Narrative: Ultrasound IV placement Informed by housekeeping staff that patient unable to tolerate IV potassium. Placed an 18 gauge needle under real time ultrasound guidance was placed in the left upper arm. FLushes wells and draws back well. Lab were drawn for the phelobotomist. Critical Care Time Critical Care Time Critical Care Time: Yes Total Critical Care Time: 75 Attestation: Time is exclusive of separately billable procedures. Time includes: direct patient care, patient reassessment, coordination of patient care, interpretation of data (laboratory data, pulse oximetry), review of patient's medical records, medical consultation and documentation of patient care. IV potassium and magnesium to prevent life threatening arrhythmia. Procedures excluded from critical care time: electrocardiography. I attest to this time spent taking care of the patient Discharge Plan Discharge Clinical Impression: Hypomagnesemia, Acute hypokalemia, Prolonged QT interval Alcohol withdrawal syndrome Qualifiers: Complication of substance-induced condition: with unspecified complication Qualified Code(s): F10.939 - Alcohol use, unspecified with withdrawal, unspecified Patient Disposition: Admitted As Inpatient
[2025-08-04 19:22] LABS: Hematocrit 37.3 % (37.0-47.0); Hemoglobin 13.2 g/dl (12.0-16.0); Imm Gran Abs Auto 0.02 X10*3/uL (0.00-0.03); Imm Gran Pct Auto 0.4 % (0.0-0.4); Lymphocytes Absolute Auto 1.1 X10*3/uL (1.2-4.9); Mean Corpuscular HGB Conc 35.4 g/dl (31.0-35.0); Mean Corpuscular Hemoglobin 31.3 pg (27.0-33.0); Mean Corpuscular Volume 88.4 fL (80.0-98.0); NRBC Abs Auto 0.020 X10*3/uL (0.0-0.012); NRBC Pct Auto 0.4 /100WBC (0.0-0.2); Platelet Count 171 X10*3/uL (160-400); Red Blood Count 4.22 X10*6/uL (4.20-5.50); White Blood Count 4.9 X10*3/uL (4.8-10.8)
[2025-08-04 19:24] LABS: Troponin-I High Sensitivity 7.1 ng/L (<3.5-17.0)
[2025-08-04 19:32] LABS: Alanine Aminotransferase 72 U/L (0-31); Albumin Level 3.7 g/dL (3.5-5.0); Alkaline Phosphatase 137 U/L (39-117); Anion Gap 24 (12-20); Aspartate Amino Transferase 225 U/L (5-31); Blood Urea Nitrogen 6 mg/dL (9-16); Calcium 8.7 mg/dL (8.4-10.2); Carbon Dioxide 16 mmol/L (22-29); Chloride 97 mmol/L (96-108); Creatinine Clr Calc Pharmacy 121.4; Estimated Glomerular Filt Rate > 60; Lipase 71 U/L (8-78); Magnesium 1.5 mg/dL (1.6-2.6); Potassium 2.6 mmol/L (3.3-5.1); Sodium 134 mmol/L (135-145); Total Protein 6.3 g/dL (6.5-8.0)
[2025-08-04] MEDS: Potassium Chloride ER 20 MEQ TAB.ER.PRT 40 MEQ PO (19:57)
[2025-08-04] MEDS: Potassium Chloride/H20 10 MEQ/100 ML PIGGYBACK 100 MEQ IV ×2 (19:58→21:11)
[2025-08-04 20:01] LABS: Appearance Urine Clear; Glucose Urine UA Negative (Negative); PH 7.0 (5.0-9.0); Specific Gravity - Urine <= 1.005 (1.005-1.025)
--- NOTE | 2025-08-04 20:01 | ECG_ITS ---
Test Reason : PROLONGED QTC Blood Pressure : */* mmHG Vent. Rate : 98 BPM Atrial Rate : 98 BPM P-R Int : 170 ms QRS Dur : 82 ms QT Int : 410 ms P-R-T Axes : 70 72 72 degrees QTcB Int : 524 ms Normal sinus rhythm cannot exclude old Anterior infarct (cited on or before 04-Aug-2025) Prolonged QT Abnormal ECG When compared with ECG of 04-Aug-2025 18:40, ST changes improved; QT has shortened Referred By: Marion García Electronically Signed By: JOSE CALLES
[2025-08-04 20:13] LABS: Cannabinoid Screen Urine Not Detected (Not Detect)
[2025-08-04] MEDS: PHENobarbitaL sodium 130 MG/ML IM ONCE 246 MG IM (20:14)
--- NOTE | 2025-08-04 21:00 | ECG_ITS ---
Test Reason : PROLONGED QTC Blood Pressure : */* mmHG Vent. Rate : 87 BPM Atrial Rate : 87 BPM P-R Int : 176 ms QRS Dur : 80 ms QT Int : 478 ms P-R-T Axes : 73 72 70 degrees QTcB Int : 575 ms Normal sinus rhythm cannot exclude old Anterior infarct (cited on or before 04-Aug-2025) Prolonged QT Abnormal ECG When compared with ECG of 04-Aug-2025 20:08, No significant changes seen Referred By: Marion García Electronically Signed By: JOSE CALLES
--- NOTE | 2025-08-04 21:20 | PC.NURSE ---
medicated per dec, notified JUAN RAMON [place]
--- NOTE | 2025-08-04 21:27 | P.HPHOSP_ITS ---
History of Present Illness Date of Service: 08/04/25 Attending physician on admission: Lorena Weiner Chief Complaint: Tarry stool, alcohol withdrawal Margaret Branch is a 45 years old woman with past medical history significant for alcohol abuse, PTSD, anxiety disorder and essential hypertension presents to the emergency department complaining of tarry stools, generalized abdominal discomfort and dry heave. She also reported withdrawal symptoms such as anxiety, chest pain, shortness on breath and palpitations. She drinks at least 9 beers daily and also smoked marijuana. Denied confusion and hallucinations. Denied illicit drug use. No hx of seizures. In the ED, she was initially found to have sinus tachycardia, other vital signs are stable. CBC is unremarkable. Sodium 134, potassium 2.6, CO2 16, anion gap 24, BUN 6 and creatinine 0.63. LFTs are elevated. Calcium is normal. Troponin 7.1, albumin 3.7, lipase 71 and test 3. ED tx: LR 1 L bolus, potassium chloride 40 mEq p.o., phenobarbital protocol started, thiamine 200 mg IV, Valium 5 mg IV, Protonix 40 mg IV Review of Systems 2 Review of Systems: All 12 systems were reviewed and normal except as noted in HPI. [facility] Medical History HTN (hypertension) Alcohol abuse PTSD (post-traumatic stress disorder) Social History Alcohol intake: current Alcohol intake frequency: 3 or more drinks per day Alcohol type: hard liquor Smoked in Last 30 Days: Yes Use of substances other than those prescribed or required for medical reasons: Yes Substance Use Type: Marijuana Substance Use Frequency: Occasionally Advance Directives: No Advance Directives Information Provided: No Do you have a plan to hurt others: No Plan Patient : No Meds Allergies Allergy/AdvReac Type Severity Reaction Status Date / Time No Known Allergies (No Known Allergy Verified 08/04/25 18:23 Allergies*) Active Medications: Current Medications Acetaminophen (Acetaminophen 325 Mg Tablet) 975 mg PO Q6H PRN PRN Reason: Pain, Mild 1-3,fever,headache Calcium Carbonate (Calcium Carbonate 750 Mg Tab.Chew) 750 mg PO Q4H PRN PRN Reason: Heartburn Potassium Chloride (Potassium Chloride/H20) 10 meq in 100 mls @ 100 mls/hr IV Q1H [facility] Stop: 08/04/25 23:44 Last Admin: 08/04/25 21:11 Dose: 100 mls/hr Sodium Chloride (Ns) 1,000 mls @ 75 mls/hr IVCONT .[id number] [facility] Last Admin: 08/04/25 21:11 Dose: 75 mls/hr Magnesium Hydroxide (Milk Of Magnesia 30 Ml Oral.Susp) 30 ml PO DAILY PRN PRN Reason: Constipation Melatonin (Melatonin 3 Mg Tablet) 6 mg PO BEDTIME PRN PRN Reason: Insomnia Pharmacy Consult (Consult Rx Etoh Phenob Im/Po) 1 each MISCELLANE ONCE PRN; Protocol PRN Reason: Consult order Phenobarbital (Phenobarbital 15 Mg Tablet) 45 mg PO BID [facility] Stop: 08/06/25 21:01 Phenobarbital (Phenobarbital 30 Mg Tablet) 30 mg PO BID [facility] Stop: 08/08/25 21:01 Phenobarbital (Phenobarbital 15 Mg Tablet) 15 mg PO DAILY [facility] Stop: 08/10/25 09:01 Phenobarbital Sodium (Phenobarbital Sodium 130 Mg/Ml Vial Im Q3hx2) 184 mg IM Q3H [facility] Stop: 08/05/25 03:01 Sodium Chloride (0.9 % Sodium Chloride Flush 3 Ml Syringe) 3 ml IVFLUSH QSHIFT [facility] Physical Exam 2 Vital Signs and Narrative: Vital Signs: Last Vital Signs Temp 98.1 F 08/04/25 18:28 Pulse 98 08/04/25 19:02 Resp 18 08/04/25 19:02 BP 110/74 08/04/25 19:02 Pulse Ox 96 08/04/25 19:02 O2 Del Method Room Air 08/04/25 19:02 BMI result Body Mass Index 25.8 General: Alert, oriented. Looks very anxious. Restless. HEENT: Head normocephalic, atraumatic. PER, EOMI. Icteric sclerae, conjunctiva clear. Oropharynx without erythema or exudate. Dry oral mucosa. Neck: Supple,or JVD. Heart: RRR, no murmurs, rubs or gallops. Lungs: Clear to auscultation bilaterally. No wheezes, rales, or rhonchi. Normal respiratory effort. Abdomen: Soft, generalized abdominal tenderness, no rebound or guarding., nondistended, normoactive bowel sounds. Extremities: No calf tenderness bilaterally, no swelling Musculoskeletal: Full range of motion. No joint swelling, deformity, or tenderness. Normal muscle tone and strength. Skin: Warm/Dry. No pallor. No overt jaundice. Neurologic: Alert & oriented x4. Moving all extremities spontaneously. Normal speech. Psychological: Normal mood and affect. Thought process coherent. Results Labs 08/04/25 18:51 08/04/25 18:51 Labs: Laboratory Results - last 24 hr 08/04/25 08/04/25 18:51 19:47 MCV 88.4 MCH 31.3 MCHC 35.4 H RDW 13.4 Plt Count 171 MPV 9.9 Immature Gran % (Auto) 0.4 Neut % (Auto) 62.6 Lymph % (Auto) 22.1 [place] % (Auto) 14.1 H Eos % (Auto) 0.4 Baso % (Auto) 0.4 Lymph # (Auto) 1.1 L [place] # (Auto) 0.7 Eos # (Auto) 0.0 Baso # (Auto) 0.0 Abs Immat Gran (auto) 0.02 Absolute Neuts (auto) 3.1 Absolute Nucleated RBC 0.020 H Nucleated RBC % (auto) 0.4 H PT 12.5 H INR 1.1 Anion Gap 24 H Estim Creat Clear Calc 121.4 Estimated GFR > 60 Random Glucose 114 Calcium 8.7 Magnesium 1.5 L Total Bilirubin 1.3 H Direct Bilirubin 0.7 H AST 225 H ALT 72 H Alkaline Phosphatase 137 H Troponin I High Sens 7.1 Total Protein 6.3 L Albumin 3.7 Lipase 71 Beta HCG, Quant 3 Urine Color Yellow Urine Appearance Clear Urine pH 7.0 Ur Specific [place] <= 1.005 Urine Protein Negative Urine Glucose (UA) Negative Urine Ketones Negative Urine Blood Negative Urine Nitrite Negative Ur Leukocyte Esterase Negative Stool Occult Blood NEGATIVE Urine Opiates Screen Not Detected Ur Buprenorphine Scrn Not Detected Ur Oxycodone Screen Not Detected Urine Methadone Screen Not Detected Urine Fentanyl Screen Not Detected Ur Barbiturates Screen Not Detected Ur Phencyclidine Scrn Not Detected Ur Amphetamines Screen Not Detected U Benzodiazepines Scrn Not Detected Urine Cocaine Screen Not Detected U Marijuana (THC) Screen Not Detected Ethyl Alcohol 211 Blood Type O Positive Antibody Screen NEGATIVE Assessment and Plan (1) Alcohol withdrawal syndrome: Qualifiers: Complication of substance-induced condition: with unspecified complication Qualified Code(s): F10.939 - Alcohol use, unspecified with withdrawal, unspecified Status: Acute (2) Prolonged QT interval: Status: Acute (3) Hypomagnesemia: Status: Acute (4) Acute hypokalemia: Status: Acute Plan Margaret Branch is a 45 y/o woman with PHMx significant for alcohol abuse, PTSD and anxiety disorder who presents with: Alcohol withdrawal syndrome. Telemetry. Pulse oximetry. Continue phenobarbital protocol. Valium IV as needed. Thiamine, folic acid and multivitamins. IV fluids with D5. Addition social work consult. Patient encouraged to abstain from alcohol. Prolonged QT. 672 ms --> 709 ms --> 575 ms. multifactorial: Psych meds and electrolyte imbalances: Hypokalemia, hypomagnesemia. Telemetry. Hold psych meds that prolongs QT such as Seroquel and hydroxyzine. Replete electrolyte as needed. Continue to monitor lytes closely. Hypomagnesemia, hypokalemia. Replete as needed. Continue to monitor Mag and K level. High anion gap metabolic acidosis; likely alcoholic ketoacidosis. Check lactic acid, venous pH and hydroxybutyrate. Continue IV fluids with D5 and thiamine. Antiemetic as needed. Continue to monitor. Essential hypertension. BP is currently soff. Hold amlodipine. Mood disorder. Seroquel and hydroxyzine on hold due to prolonged QT. Tarry stool. So far Hgb is normal. Stool occult blood test is negative. Code status: Full DVT prophylaxis: SCDs med rec pending Patient will need hospitalization for at least 2 midnights for acute withdrawal syndrome treatment with phenobarbital and IV benzos; QT was found to be quite prolonged so she will need continuous cardiac monitoring and aggressive repletion of electrolytes. This documentation was generated using dictation software; minor spreading or anti tank missileman errors may be present. Quality Stroke Does the patient have a stroke diagnosis?: No VTE Prior VTE?: No VTE Risk Level:: Medical - moderate - high VTE Device Contraindication: N/A - Device Ordered VTE Drug Contraindication: Treatment Not Indicated
--- NOTE | 2025-08-04 21:38 | PC.NURSE ---
pt unable to tolerate IV K+. provider aware. Provider willing to put US IV 18 to see of pt is able to tolerate better- pt OK with plan.
[2025-08-04 22:13] VITALS: BP 133/88; PULSE 95; RESP 19; TEMP 36.7; O2SAT 97
[2025-08-04] MEDS: diazePAM 10 MG/2 ML CARTRIDGE 7.5 MG IVPUSH (22:18)
[2025-08-04 22:39] LABS: Venous Blood Gas Refer to POC result
[2025-08-04 22:42] LABS: VBG HCO3 24 mmol/L (22-26); VBG O2 % Saturation 86.0 %
[2025-08-05] VITALS (10 sets, daily range): BP systolic 121–164; BP diastolic 52–111; PULSE 75–116; RESP 16–24; TEMP 36.3–36.7; O2SAT 95–100; BMI 27.2
[2025-08-05] MEDS: Potassium Chloride/H20 10 MEQ/100 ML PIGGYBACK 100 MEQ IV ×2 (00:04→01:54)
--- NOTE | 2025-08-05 00:08 | PC.NURSE ---
delay in K+ administration as pt was having trouble tolerating k+ infusion on her 20g IV access. MD placed and US guided #18 in the upper L arm- pt tolerating better.
--- NOTE | 2025-08-05 00:26 | PC.NURSE ---
RN gave report to JUAN RAMON fragoso.
[2025-08-05 00:35] LABS: Reflex Lactate? Lactic Acid Added
[2025-08-05] MEDS: PHENobarbitaL sodium 130 MG/ML VIAL IM Q3Hx2 184 MG IM ×2 (01:00→04:25)
[2025-08-05] MEDS: 0.9 % Sodium Chloride Flush 3 ML SYRINGE IVFLUSH ×2 (01:00→23:59)
[2025-08-05] MEDS: KCl 40 mEq in 5% Dex/0.9% Sod 40 MEQ/1,000 ML IV.SOLN 125 MEQ IVCONT (01:01)
[2025-08-05 01:19] LABS: ~Lactic Acid-LAB USE ONLY 1.6 mmol/L (0.5-2.0)
[2025-08-05 01:20] LABS: Anion Gap 15 (12-20); Blood Urea Nitrogen 4 mg/dL (9-16); Calcium 8.1 mg/dL (8.4-10.2); Carbon Dioxide 21 mmol/L (22-29); Chloride 103 mmol/L (96-108); Creatinine Clr Calc Pharmacy 139.1; Estimated Glomerular Filt Rate > 60; Magnesium 1.7 mg/dL (1.6-2.6); Potassium 3.5 mmol/L (3.3-5.1); Sodium 135 mmol/L (135-145)
[2025-08-05 03:40] LABS: MANUAL DIFF FLAG NO
[2025-08-05 03:41] LABS: Hematocrit 33.3 % (37.0-47.0); Hemoglobin 11.7 g/dl (12.0-16.0); Imm Gran Abs Auto 0.02 X10*3/uL (0.00-0.03); Imm Gran Pct Auto 0.3 % (0.0-0.4); Lymphocytes Absolute Auto 1.5 X10*3/uL (1.2-4.9); Mean Corpuscular HGB Conc 35.1 g/dl (31.0-35.0); Mean Corpuscular Hemoglobin 31.6 pg (27.0-33.0); Mean Corpuscular Volume 90.0 fL (80.0-98.0); NRBC Abs Auto 0.000 X10*3/uL (0.0-0.012); NRBC Pct Auto 0.0 /100WBC (0.0-0.2); Platelet Count 151 X10*3/uL (160-400); Red Blood Count 3.70 X10*6/uL (4.20-5.50); White Blood Count 6.2 X10*3/uL (4.8-10.8)
[2025-08-05 03:57] LABS: Alanine Aminotransferase 60 U/L (0-31); Albumin Level 3.5 g/dL (3.5-5.0); Alkaline Phosphatase 117 U/L (39-117); Anion Gap 12 (12-20); Aspartate Amino Transferase 204 U/L (5-31); Blood Urea Nitrogen 5 mg/dL (9-16); Calcium 8.0 mg/dL (8.4-10.2); Carbon Dioxide 23 mmol/L (22-29); Chloride 104 mmol/L (96-108); Creatinine Clr Calc Pharmacy 141.6; Estimated Glomerular Filt Rate > 60; Magnesium 1.6 mg/dL (1.6-2.6); Potassium 3.4 mmol/L (3.3-5.1); Sodium 136 mmol/L (135-145); Total Protein 5.6 g/dL (6.5-8.0)
--- NOTE | 2025-08-05 08:00 | ECG_ITS ---
Test Reason : PQT Blood Pressure : */* mmHG Vent. Rate : 86 BPM Atrial Rate : 86 BPM P-R Int : 174 ms QRS Dur : 82 ms QT Int : 420 ms P-R-T Axes : 68 62 56 degrees QTcB Int : 502 ms Normal sinus rhythm Possible Left atrial enlargement Anterior infarct (cited on or before 04-Aug-2025) Prolonged QT Abnormal ECG When compared with ECG of 04-Aug-2025 21:06, QT has shortened Referred By: Mo Mcarthur Electronically Signed By: Bernabe Brandon
--- NOTE | 2025-08-05 08:30 | PHA.MEDREC ---
Pharmacy Consult ? Medication Reconciliation Pharmacy has completed the medication reconciliation. Patient had RX bottles with her. Patient stated she is also on trazodone but has recently ran out of refills
--- NOTE | 2025-08-05 09:02 | PC.NURSE ---
pt medicated on behalf of primary nurse
[2025-08-05] MEDS: Nicotine 21 MG PATCH.TD24 TRANSDERMA (11:32)
--- NOTE | 2025-08-05 15:32 | MHC.CM.PN ---
THIS CM MET WITH PATIENT IN THE ED. PATIENT LIVES AT HOME WITH A ROOMMATE AND HER 17 YEAR OLD SON. PATIENT WILL ARRANGE HER OWN TRANSPORT HOME AT DISCHARGE. NEW HCP COMPLETED WITH PATIENT TODAY, NOW ON FILE. PCP: DR. RAVI LEIVA
--- NOTE | 2025-08-05 17:32 | P.PNIM_ITS ---
Subjective Subjective Date of Service: 08/05/25 Interval History: No new complaints or issues today. The patient has much less tremulous than yesterday. Eating and drinking well. Review of Systems Review of Systems: Yes all other systems are reviewed and are negative Physical Exam 2 Exam: Exam: General: A&O x3, oriented to time place person and situation, comfortable, no pain Cardiac: S1, S2 auscultated with no S3/4, no MRG. Well perfused. Respiratory: Normal breath sounds auscultated throughout all lung zones, without wheezing, rales. Normal rate. GI/ : No abdominal pain on palpation, no masses or distentions. MSK: Normal ambulation without pain at bony prominences or musculature Neurological: Normal neurological examination on overview, without obvious CN II-XII abnormalities. Vital Signs: Vital Signs: Last Vital Signs Temp 98.0 F 08/04/25 22:13 Pulse 93 08/05/25 11:35 Resp 20 08/05/25 11:35 BP 133/90 H 08/05/25 11:35 Pulse Ox 95 08/05/25 11:35 O2 Del Method Room Air 08/05/25 11:35 BMI result Body Mass Index 25.8 Objective Data Active Medications Acetaminophen (Acetaminophen 325 Mg Tablet) 975 mg PO Q6H PRN PRN Reason: Pain, Mild 1-3,fever,headache Amlodipine Besylate (Amlodipine Besylate 5 Mg Tablet) 5 mg PO DAILY [facility]; Protocol Last Admin: 08/05/25 11:34 Dose: 5 mg Documented By: MONICA Calcium Carbonate (Calcium Carbonate 750 Mg Tab.Chew) 750 mg PO Q4H PRN PRN Reason: Heartburn Diazepam (Diazepam 10 Mg/2 Ml Cartridge) 5 mg IVPUSH Q4H PRN PRN Reason: Alcohol Withdrawal Folic Acid (Folic Acid 1 Mg Tablet) 1 mg PO DAILY [facility] Last Admin: 08/05/25 09:00 Dose: 1 mg Documented By: PALMER Thiamine HCl 400 mg/ Sodium (Chloride) 104 mls @ 208 mls/hr IV DAILY [facility] Last Infusion: 08/05/25 12:15 Dose: Infused Documented By: MONICA Magnesium Hydroxide (Milk Of Magnesia 30 Ml Oral.Susp) 30 ml PO DAILY PRN PRN Reason: Constipation Melatonin (Melatonin 3 Mg Tablet) 6 mg PO BEDTIME PRN PRN Reason: Insomnia Multivitamins/Vitamin C (Multivitamin Tablet) 1 tab PO DAILY [facility] Last Admin: 08/05/25 09:00 Dose: 1 tab Documented By: PALMER Nicotine (Nicotine 21 Mg Patch.Td24) 21 mg TRANSDERMA DAILY [facility] Last Admin: 08/05/25 11:32 Dose: 21 mg Documented By: MONICA Pharmacy Consult (Consult Rx Etoh Phenob Im/Po) 1 each MISCELLANE ONCE PRN; Protocol PRN Reason: Consult order Phenobarbital (Phenobarbital 15 Mg Tablet) 45 mg PO BID [facility] Stop: 08/06/25 21:01 Last Admin: 08/05/25 09:01 Dose: 45 mg Documented By: PALMER Phenobarbital (Phenobarbital 30 Mg Tablet) 30 mg PO BID [facility] Stop: 08/08/25 21:01 Phenobarbital (Phenobarbital 15 Mg Tablet) 15 mg PO DAILY [facility] Stop: 08/10/25 09:01 Prochlorperazine Edisylate (Prochlorperazine Edisylate 10 Mg/2 Ml Vial) 5 mg IVPUSH Q6H PRN PRN Reason: Nausea and Vomiting Quetiapine Fumarate (Quetiapine Fumarate 25 Mg Tablet) 75 mg PO BEDTIME [facility] Sertraline HCl (Sertraline Hcl 100 Mg Tablet) 100 mg PO DAILY [facility] Last Admin: 08/05/25 11:34 Dose: 100 mg Documented By: MONICA Sodium Chloride (0.9 % Sodium Chloride Flush 3 Ml Syringe) 3 ml IVFLUSH QSHIFT [facility] Last Admin: 08/05/25 17:15 Dose: Not Given Documented By: MONICA Non-Admin Reason: IV Running Labs 08/05/25 03:23 08/05/25 03:23 Labs: Laboratory Results - last 24 hr 08/04/25 08/04/25 08/04/25 18:51 19:47 22:30 MCV 88.4 MCH 31.3 MCHC 35.4 H RDW 13.4 Plt Count 171 MPV 9.9 Immature Gran % (Auto) 0.4 Neut % (Auto) 62.6 Lymph % (Auto) 22.1 [place] % (Auto) 14.1 H Eos % (Auto) 0.4 Baso % (Auto) 0.4 Lymph # (Auto) 1.1 L [place] # (Auto) 0.7 Eos # (Auto) 0.0 Baso # (Auto) 0.0 Abs Immat Gran (auto) 0.02 Absolute Neuts (auto) 3.1 Absolute Nucleated RBC 0.020 H Nucleated RBC % (auto) 0.4 H PT 12.5 H INR 1.1 VBG pH VBG pCO2 VBG pO2 VBG HCO3 VBG O2 Saturation VBG Base Excess Anion Gap 24 H Estim Creat Clear Calc 121.4 Estimated GFR > 60 Random Glucose 114 Lactic Acid 2.5 H* Lactic Acid F/U @ 2Hr Calcium 8.7 Phosphorus 2.2 L 1.8 L Magnesium 1.5 L Total Bilirubin 1.3 H Direct Bilirubin 0.7 H AST 225 H ALT 72 H Alkaline Phosphatase 137 H Troponin I High Sens 7.1 Total Protein 6.3 L Albumin 3.7 Lipase 71 Beta-Hydroxybutyrate 0.27 Beta HCG, Quant 3 Urine Color Yellow Urine Appearance Clear Urine pH 7.0 Ur Specific [place] <= 1.005 Urine Protein Negative Urine Glucose (UA) Negative Urine Ketones Negative Urine Blood Negative Urine Nitrite Negative Ur Leukocyte Esterase Negative Stool Occult Blood NEGATIVE Urine Opiates Screen Not Detected Ur Buprenorphine Scrn Not Detected Ur Oxycodone Screen Not Detected Urine Methadone Screen Not Detected Urine Fentanyl Screen Not Detected Ur Barbiturates Screen Not Detected Ur Phencyclidine Scrn Not Detected Ur Amphetamines Screen Not Detected U Benzodiazepines Scrn Not Detected Urine Cocaine Screen Not Detected U Marijuana (THC) Screen Not Detected Ethyl Alcohol 211 Blood Type O Positive Antibody Screen NEGATIVE 08/04/25 08/05/25 08/05/25 22:37 00:58 03:23 MCV 90.0 MCH 31.6 MCHC 35.1 H RDW 13.6 Plt Count 151 L MPV 9.6 Immature Gran % (Auto) 0.3 Neut % (Auto) 65.0 Lymph % (Auto) 25.0 [place] % (Auto) 8.3 Eos % (Auto) 0.8 Baso % (Auto) 0.6 Lymph # (Auto) 1.5 [place] # (Auto) 0.5 Eos # (Auto) 0.1 Baso # (Auto) 0.0 Abs Immat Gran (auto) 0.02 Absolute Neuts (auto) 4.0 Absolute Nucleated RBC 0.000 Nucleated RBC % (auto) 0.0 PT INR VBG pH 7.56 H VBG pCO2 27 VBG pO2 56 VBG HCO3 24 VBG O2 Saturation 86.0 VBG Base Excess 3.8 Anion Gap 15 12 Estim Creat Clear Calc 139.1 141.6 Estimated GFR > 60 > 60 Random Glucose 97 108 Lactic Acid Lactic Acid F/U @ 2Hr 1.6 Calcium 8.1 L D 8.0 L Phosphorus Magnesium 1.7 1.6 Total Bilirubin 1.8 H Direct Bilirubin AST 204 H ALT 60 H Alkaline Phosphatase 117 Troponin I High Sens Total Protein 5.6 L Albumin 3.5 Lipase Beta-Hydroxybutyrate Beta HCG, Quant Urine Color Urine Appearance Urine pH Ur Specific [place] Urine Protein Urine Glucose (UA) Urine Ketones Urine Blood Urine Nitrite Ur Leukocyte Esterase Stool Occult Blood Urine Opiates Screen Ur Buprenorphine Scrn Ur Oxycodone Screen Urine Methadone Screen Urine Fentanyl Screen Ur Barbiturates Screen Ur Phencyclidine Scrn Ur Amphetamines Screen U Benzodiazepines Scrn Urine Cocaine Screen U Marijuana (THC) Screen Ethyl Alcohol Blood Type Antibody Screen Assessment and Plan (1) Alcohol withdrawal syndrome: Status: Acute (2) Hypomagnesemia: Status: Acute (3) Acute hypokalemia: Status: Acute (4) Hypophosphatemia: Status: Acute (5) Alcoholic hepatitis: Status: Acute (6) Thrombocytopenia: Status: Acute (7) Anemia: Status: Acute (8) Alcoholic ketosis: Status: Acute Plan 45-year-old female, with a background history of ETOH abuse, PTSD and anxiety disorder, presents with complaints of tarry stools, abdominal discomfort, admitted with ETOH withdrawal, high anion gap metabolic acidosis and electrolyte abnormalities. ETOH abuse ETOH withdrawal High anion gap metabolic acidosis Alcoholic ketoacidosis PLAN - phenobarbital protocol - Valium IV p.r.n. - thiamine b.i.d. IV - folic acid - multivitamins - encourage p.o. intake and fluid intake - addiction medicine consult - naltrexone on discharge Prolonged QTC Hypokalemia Hypomagnesemia Hypophosphatemia Significant electrolyte abnormalities noted. Continue to monitor closely PLAN - check magnesium daily - check phosphorus daily - check potassium daily - cardiac telemetry - encourage p.o. intake and fluids Alcoholic hepatitis Elevated LFTs Likely 2/2 EtOH abuse. Right upper quadrant pain the patient was describing has resolved Essential HTN Hold amlodipine MDD NATALIO Continue sertraline Continue quetiapine Hold off hydroxyzine Tarry stool Stool occult -ve Monitor CBC QUALITY METRICS - VTE: SCDs - CODE STATUS: Full code - DIET: Regular Total time managing care of this patient today: 35 minutes. Quality Stroke Does the patient have a stroke diagnosis?: No VTE Prior VTE?: No VTE Risk Level:: Medical - moderate - high VTE Device Contraindication: N/A - Device Ordered VTE Drug Contraindication: Treatment Not Indicated
[2025-08-05 18:32] LABS: Anion Gap 12 (12-20); Blood Urea Nitrogen 5 mg/dL (9-16); Calcium 8.4 mg/dL (8.4-10.2); Carbon Dioxide 23 mmol/L (22-29); Chloride 103 mmol/L (96-108); Creatinine Clr Calc Pharmacy 112.5; Estimated Glomerular Filt Rate > 60; Potassium 3.3 mmol/L (3.3-5.1); Sodium 135 mmol/L (135-145)
[2025-08-05] MEDS: diazePAM 10 MG/2 ML CARTRIDGE 5 MG IVPUSH (19:49)
--- NOTE | 2025-08-06 01:14 | PC.NURSE ---
Pt HR noted to be in 120s on tele monitor. RN entered room and found pt to be sitting up in bed. Pt stated that she was very worried that she would be sent to the fifth floor psychiatric unit of the hospital. Pt stated that she had been too anxious to use the call salazar to ask for the bathroom, so she had urinated in a foam cup and then dumped the urine in her daly bedside water container. Pt had also spilled some urine on her hospital pants. Pt asked to refuse bed alarms so that she can be independent in room. RN re-educated pt on the importance of the fall risk precautions. Pt stated that she understood and would still like to refuse bed and chair alarms. Fall risk wristband and yellow socks remain in place.
[2025-08-06 02:48] VITALS: BP 144/86; PULSE 84; RESP 18; TEMP 37.4; O2SAT 98
[2025-08-06 07:38] LABS: Anion Gap 9 (12-20); Blood Urea Nitrogen 6 mg/dL (9-16); Calcium 8.5 mg/dL (8.4-10.2); Carbon Dioxide 26 mmol/L (22-29); Chloride 100 mmol/L (96-108); Creatinine Clr Calc Pharmacy 128.5; Estimated Glomerular Filt Rate > 60; Magnesium 1.3 mg/dL (1.6-2.6); Potassium 3.4 mmol/L (3.3-5.1); Sodium 132 mmol/L (135-145)
[2025-08-06 08:00] VITALS: BP 122/84; PULSE 99; RESP 18; TEMP 36.4; O2SAT 98
[2025-08-06] MEDS: Nicotine 21 MG PATCH.TD24 TRANSDERMA (08:22)
[2025-08-06] MEDS: 0.9 % Sodium Chloride Flush 3 ML SYRINGE IVFLUSH ×3 (08:28→19:48)
[2025-08-06] MEDS: Magnesium Sulfate/H2O 2 GM/50 ML PIGGYBACK IV (09:40)
--- NOTE | 2025-08-06 12:04 | MHC.CM.PN ---
Per ROUNDS discussion, Patient is not yet medically cleared for dc (low Magnesium & s/s of ETOH Withdrawal); home is the goal and CM will continue to follow.
[2025-08-06] MEDS: diazePAM 10 MG/2 ML CARTRIDGE 5 MG IVPUSH (12:21)
--- NOTE | 2025-08-06 13:37 | PC.NURSE ---
Pt A&Ox4. Pt reports multiple loose BMs today. Mild tremors. Pt reported great anxiety and was ready to leave AMA r/t hospital environment, fall risk interventions (alarms), delayed response to call light. She was administered vallium per MAR. She spoke with provider and has decided to stay. Fall risk will be downgraded to Low. Independent in room. SO at bedside.
--- NOTE | 2025-08-06 14:09 | HO.ADDICTCON ---
History of Present Illness Date of Service: 08/06/25 Chief Complaint: alcohol withdrawal syndrome, hyponatremia, prolong Reason for Consult: AUD-acute withdrawal Sources of Information: patient interviewed (sleeping after PRN medication ) and chart reviewed HPI Narrative: Patient is a 45 year old female medically admitted with acute alcohol withdrawal Most information obtained via chart review, as patient was sleeping after having received PRN anxiolytic Patient initiated on phenobarbital in ED after presenting with abdominal pain and reporting black tarry stools--elevated CIWA. Seen by senior project leader/team lead --evaluation reviewed Labs reviewed --electrolyte deficiencies being replete Today, patient reportedly quite anxious and requesting to be discharged, after speaking with provider, agreeable to staying, and PRN allowed patient to rest. Medical Evaluation Reviewed: Yes Review of Systems Review of Systems Yes Other (patient resting after PRN ) Diagnostics Vital Signs (24Hr): Vital Signs - 24 hr 08/05/25 18:37 08/05/25 21:09 08/05/25 21:39 Temperature 98.0 F 97.7 F Pulse Rate 87 116 H 87 Respiratory Rate 16 20 18 Blood Pressure 128/86 164/111 H 137/89 Pulse Oximetry 99 100 99 Oxygen Delivery Method Room Air Room Air Room Air 08/05/25 23:16 08/06/25 02:48 08/06/25 08:00 Temperature 97.3 F 99.3 F 97.5 F Pulse Rate 97 84 99 Respiratory Rate 16 18 18 Blood Pressure 133/92 H 144/86 H 122/84 Pulse Oximetry 98 98 98 Oxygen Delivery Method Room Air Room Air Room Air BMI result Body Mass Index 27.2 Labs 08/05/25 03:23 08/06/25 05:49 Labs: Laboratory Results - last 48 hr 08/04/25 08/04/25 08/04/25 18:51 19:47 22:30 WBC 4.9 RBC 4.22 Hgb 13.2 Hct 37.3 MCV 88.4 MCH 31.3 MCHC 35.4 H RDW 13.4 Plt Count 171 MPV 9.9 Immature Gran % (Auto) 0.4 Neut % (Auto) 62.6 Lymph % (Auto) 22.1 [place] % (Auto) 14.1 H Eos % (Auto) 0.4 Baso % (Auto) 0.4 Lymph # (Auto) 1.1 L [place] # (Auto) 0.7 Eos # (Auto) 0.0 Baso # (Auto) 0.0 Abs Immat Gran (auto) 0.02 Absolute Neuts (auto) 3.1 Absolute Nucleated RBC 0.020 H Nucleated RBC % (auto) 0.4 H Hold Purple Top PT 12.5 H INR 1.1 VBG pH VBG pCO2 VBG pO2 VBG HCO3 VBG O2 Saturation VBG Base Excess Sodium 134 L Potassium 2.6 L* Chloride 97 Carbon Dioxide 16 L Anion Gap 24 H BUN 6 L Creatinine 0.63 Estim Creat Clear Calc 121.4 Estimated GFR > 60 Random Glucose 114 Lactic Acid 2.5 H* Lactic Acid F/U @ 2Hr Calcium 8.7 Phosphorus 2.2 L 1.8 L Magnesium 1.5 L Total Bilirubin 1.3 H Direct Bilirubin 0.7 H AST 225 H ALT 72 H Alkaline Phosphatase 137 H Troponin I High Sens 7.1 Total Protein 6.3 L Albumin 3.7 Lipase 71 Beta-Hydroxybutyrate 0.27 Beta HCG, Quant 3 Hold Yellow Top Urine Color Yellow Urine Appearance Clear Urine pH 7.0 Ur Specific [place] <= 1.005 Urine Protein Negative Urine Glucose (UA) Negative Urine Ketones Negative Urine Blood Negative Urine Nitrite Negative Ur Leukocyte Esterase Negative Stool Occult Blood NEGATIVE Urine Opiates Screen Not Detected Ur Buprenorphine Scrn Not Detected Ur Oxycodone Screen Not Detected Urine Methadone Screen Not Detected Urine Fentanyl Screen Not Detected Ur Barbiturates Screen Not Detected Ur Phencyclidine Scrn Not Detected Ur Amphetamines Screen Not Detected U Benzodiazepines Scrn Not Detected Urine Cocaine Screen Not Detected U Marijuana (THC) Screen Not Detected Ethyl Alcohol 211 Blood Type O Positive Antibody Screen NEGATIVE 08/04/25 08/05/25 08/05/25 22:37 00:58 03:23 WBC 6.2 RBC 3.70 L Hgb 11.7 L Hct 33.3 L MCV 90.0 MCH 31.6 MCHC 35.1 H RDW 13.6 Plt Count 151 L MPV 9.6 Immature Gran % (Auto) 0.3 Neut % (Auto) 65.0 Lymph % (Auto) 25.0 [place] % (Auto) 8.3 Eos % (Auto) 0.8 Baso % (Auto) 0.6 Lymph # (Auto) 1.5 [place] # (Auto) 0.5 Eos # (Auto) 0.1 Baso # (Auto) 0.0 Abs Immat Gran (auto) 0.02 Absolute Neuts (auto) 4.0 Absolute Nucleated RBC 0.000 Nucleated RBC % (auto) 0.0 Hold Purple Top PT INR VBG pH 7.56 H VBG pCO2 27 VBG pO2 56 VBG HCO3 24 VBG O2 Saturation 86.0 VBG Base Excess 3.8 Sodium 135 136 Potassium 3.5 D 3.4 Chloride 103 104 Carbon Dioxide 21 L 23 Anion Gap 15 12 BUN 4 L 5 L Creatinine 0.55 0.54 Estim Creat Clear Calc 139.1 141.6 Estimated GFR > 60 > 60 Random Glucose 97 108 Lactic Acid Lactic Acid F/U @ 2Hr 1.6 Calcium 8.1 L D 8.0 L Phosphorus Magnesium 1.7 1.6 Total Bilirubin 1.8 H Direct Bilirubin AST 204 H ALT 60 H Alkaline Phosphatase 117 Troponin I High Sens Total Protein 5.6 L Albumin 3.5 Lipase Beta-Hydroxybutyrate Beta HCG, Quant Hold Yellow Top Urine Color Urine Appearance Urine pH Ur Specific [place] Urine Protein Urine Glucose (UA) Urine Ketones Urine Blood Urine Nitrite Ur Leukocyte Esterase Stool Occult Blood Urine Opiates Screen Ur Buprenorphine Scrn Ur Oxycodone Screen Urine Methadone Screen Urine Fentanyl Screen Ur Barbiturates Screen Ur Phencyclidine Scrn Ur Amphetamines Screen U Benzodiazepines Scrn Urine Cocaine Screen U Marijuana (THC) Screen Ethyl Alcohol Blood Type Antibody Screen 08/05/25 08/06/25 18:13 05:49 WBC RBC Hgb Hct MCV MCH MCHC RDW Plt Count MPV Immature Gran % (Auto) Neut % (Auto) Lymph % (Auto) [place] % (Auto) Eos % (Auto) Baso % (Auto) Lymph # (Auto) [place] # (Auto) Eos # (Auto) Baso # (Auto) Abs Immat Gran (auto) Absolute Neuts (auto) Absolute Nucleated RBC Nucleated RBC % (auto) Hold Purple Top SEE NOTE SEE NOTE PT INR VBG pH VBG pCO2 VBG pO2 VBG HCO3 VBG O2 Saturation VBG Base Excess Sodium 135 132 L Potassium 3.3 3.4 Chloride 103 100 Carbon Dioxide 23 26 Anion Gap 12 9 L BUN 5 L 6 L Creatinine 0.68 0.61 Estim Creat Clear Calc 112.5 128.5 Estimated GFR > 60 > 60 Random Glucose 108 89 Lactic Acid Lactic Acid F/U @ 2Hr Calcium 8.4 8.5 Phosphorus 1.1 L 1.3 L Magnesium 1.3 L* Total Bilirubin Direct Bilirubin AST ALT Alkaline Phosphatase Troponin I High Sens Total Protein Albumin Lipase Beta-Hydroxybutyrate Beta HCG, Quant Hold Yellow Top See Note Urine Color Urine Appearance Urine pH Ur Specific [place] Urine Protein Urine Glucose (UA) Urine Ketones Urine Blood Urine Nitrite Ur Leukocyte Esterase Stool Occult Blood Urine Opiates Screen Ur Buprenorphine Scrn Ur Oxycodone Screen Urine Methadone Screen Urine Fentanyl Screen Ur Barbiturates Screen Ur Phencyclidine Scrn Ur Amphetamines Screen U Benzodiazepines Scrn Urine Cocaine Screen U Marijuana (THC) Screen Ethyl Alcohol Blood Type Antibody Screen Mental Status Exam Mental Status Exam Level of Consciousness: Appropriate (sleeping after PRN ) Medications Medications Current Medications Acetaminophen (Acetaminophen 325 Mg Tablet) 975 mg PO Q6H PRN PRN Reason: Pain, Mild 1-3,fever,headache Amlodipine Besylate (Amlodipine Besylate 5 Mg Tablet) 5 mg PO DAILY [facility]; Protocol Last Admin: 08/06/25 08:27 Dose: 5 mg Calcium Carbonate (Calcium Carbonate 750 Mg Tab.Chew) 750 mg PO Q4H PRN PRN Reason: Heartburn Diazepam (Diazepam 10 Mg/2 Ml Cartridge) 5 mg IVPUSH Q4H PRN PRN Reason: Alcohol Withdrawal Last Admin: 08/06/25 12:21 Dose: 5 mg Folic Acid (Folic Acid 1 Mg Tablet) 1 mg PO DAILY [facility] Last Admin: 08/06/25 08:27 Dose: 1 mg Thiamine HCl 400 mg/ Sodium (Chloride) 104 mls @ 208 mls/hr IV DAILY [facility] Last Infusion: 08/06/25 09:49 Dose: Infused Magnesium Hydroxide (Milk Of Magnesia 30 Ml Oral.Susp) 30 ml PO DAILY PRN PRN Reason: Constipation Melatonin (Melatonin 3 Mg Tablet) 6 mg PO BEDTIME PRN PRN Reason: Insomnia Multivitamins/Vitamin C (Multivitamin Tablet) 1 tab PO DAILY [facility] Last Admin: 08/06/25 08:26 Dose: 1 tab Nicotine (Nicotine 21 Mg Patch.Td24) 21 mg TRANSDERMA DAILY [facility] Last Admin: 08/06/25 08:22 Dose: 21 mg Pharmacy Consult (Consult Rx Etoh Phenob Im/Po) 1 each MISCELLANE ONCE PRN; Protocol PRN Reason: Consult order Phenobarbital (Phenobarbital 15 Mg Tablet) 45 mg PO BID [facility] Stop: 08/06/25 21:01 Last Admin: 08/06/25 08:25 Dose: 45 mg Phenobarbital (Phenobarbital 30 Mg Tablet) 30 mg PO BID [facility] Stop: 08/08/25 21:01 Phenobarbital (Phenobarbital 15 Mg Tablet) 15 mg PO DAILY [facility] Stop: 08/10/25 09:01 Prochlorperazine Edisylate (Prochlorperazine Edisylate 10 Mg/2 Ml Vial) 5 mg IVPUSH Q6H PRN PRN Reason: Nausea and Vomiting Quetiapine Fumarate (Quetiapine Fumarate 25 Mg Tablet) 75 mg PO BEDTIME [facility] Last Admin: 08/05/25 21:12 Dose: 75 mg Sertraline HCl (Sertraline Hcl 100 Mg Tablet) 100 mg PO DAILY [facility] Last Admin: 08/06/25 08:27 Dose: 100 mg Sodium Chloride (0.9 % Sodium Chloride Flush 3 Ml Syringe) 3 ml IVFLUSH QSHIFT [facility] Last Admin: 08/06/25 08:28 Dose: 3 ml Allergies Allergies Allergy/AdvReac Type Severity Reaction Status Date / Time No Known Allergies (No Known Allergy Verified 08/04/25 18:23 Allergies*) Assessment & Plan Assessment & Plan (1) Alcohol use disorder, severe, dependence: Status: Acute Code(s): F10.20 - Alcohol dependence, uncomplicated Assessment and Plan: withdrawal sx being managed with phenobarbital protocol PRN gabapentin 100mg for ongoing anxiety will follow up in AM Total time managing care of this patient today __15__ minutes. PMFSH Past Medical History Medical History HTN (hypertension) Alcohol abuse PTSD (post-traumatic stress disorder) Social History Social History Household Members: Significant Other and Children Housing: House Do you presently have visiting nurse or other home services: No Alcohol intake: current Alcohol intake frequency: 3 or more drinks per day Alcohol type: hard liquor Comment: refused bed alarm, steady on her feet Patient Tobacco Use Status: Current everyday Tobacco user Tobacco use type: Cigarette Cigarette Packs Per Day: 0.5 Cigarettes Per Day: 10.0 e-Cigarette/Vaping Use: Never Used Second Hand Smoke Exposure: No Substance Use Type: Marijuana service: No
--- NOTE | 2025-08-06 15:38 | MHC.RECOVRN ---
soccer coach referral made with [facility] per pt request. Print outs of [facility] (remote + in-person) provided as well as info on [facility]. Intake appointment made with the [facility] for AUD tx for 08/12 @13:00. Pt interested in discussing DC with provider.
[2025-08-06 16:00] VITALS: BP 132/86; PULSE 89; RESP 18; TEMP 36.8; O2SAT 94
--- NOTE | 2025-08-06 18:28 | P.PNIM_ITS ---
Subjective Subjective Date of Service: 08/06/25 Interval History: Mag noted to be 1.3 today Pt anxious, upset about being a fall risk and having a bed alarm Tremors have stopped Denies N/V/D No auditory or visual hallucinations Denies diaphoresis Seems inclined for Review of Systems Review of Systems: Yes all other systems are reviewed and are negative Physical Exam 2 Exam: Exam: General: AOx3, no acute distress Resp: CTA bilaterally CVS: S1, S2, RRR GI: +BS, NT, no distention Skin: Warm, dry Neuro: Cranial nerves II-XII grossly intact bilaterally. Motor grossly intact bilaterally. No upper extremity tremors noted. Extremities: No edema Psych: Anxious Vital Signs: Vital Signs: Last Vital Signs Temp 98.2 F 08/06/25 16:00 Pulse 89 08/06/25 16:00 Resp 18 08/06/25 16:00 BP 132/86 08/06/25 16:00 Pulse Ox 94 08/06/25 16:00 O2 Del Method Room Air 08/06/25 16:00 BMI result Body Mass Index 27.2 Objective Data Active Medications Acetaminophen (Acetaminophen 325 Mg Tablet) 975 mg PO Q6H PRN PRN Reason: Pain, Mild 1-3,fever,headache Amlodipine Besylate (Amlodipine Besylate 5 Mg Tablet) 5 mg PO DAILY [facility]; Protocol Last Admin: 08/06/25 08:27 Dose: 5 mg Documented By: KIERRA Calcium Carbonate (Calcium Carbonate 750 Mg Tab.Chew) 750 mg PO Q4H PRN PRN Reason: Heartburn Diazepam (Diazepam 10 Mg/2 Ml Cartridge) 5 mg IVPUSH Q4H PRN PRN Reason: Alcohol Withdrawal Last Admin: 08/06/25 12:21 Dose: 5 mg Documented By: KIERRA Folic Acid (Folic Acid 1 Mg Tablet) 1 mg PO DAILY [facility] Last Admin: 08/06/25 08:27 Dose: 1 mg Documented By: KIERRA Thiamine HCl 400 mg/ Sodium (Chloride) 104 mls @ 208 mls/hr IV DAILY [facility] Last Infusion: 08/06/25 09:49 Dose: Infused Documented By: KIERRA Magnesium Hydroxide (Milk Of Magnesia 30 Ml Oral.Susp) 30 ml PO DAILY PRN PRN Reason: Constipation Melatonin (Melatonin 3 Mg Tablet) 6 mg PO BEDTIME PRN PRN Reason: Insomnia Multivitamins/Vitamin C (Multivitamin Tablet) 1 tab PO DAILY [facility] Last Admin: 08/06/25 08:26 Dose: 1 tab Documented By: KIERRA Nicotine (Nicotine 21 Mg Patch.Td24) 21 mg TRANSDERMA DAILY [facility] Last Admin: 08/06/25 08:22 Dose: 21 mg Documented By: KIERRA Pharmacy Consult (Consult Rx Etoh Phenob Im/Po) 1 each MISCELLANE ONCE PRN; Protocol PRN Reason: Consult order Phenobarbital (Phenobarbital 15 Mg Tablet) 45 mg PO BID [facility] Stop: 08/06/25 21:01 Last Admin: 08/06/25 08:25 Dose: 45 mg Documented By: KIERRA Phenobarbital (Phenobarbital 30 Mg Tablet) 30 mg PO BID [facility] Stop: 08/08/25 21:01 Phenobarbital (Phenobarbital 15 Mg Tablet) 15 mg PO DAILY [facility] Stop: 08/10/25 09:01 Prochlorperazine Edisylate (Prochlorperazine Edisylate 10 Mg/2 Ml Vial) 5 mg IVPUSH Q6H PRN PRN Reason: Nausea and Vomiting Quetiapine Fumarate (Quetiapine Fumarate 25 Mg Tablet) 75 mg PO BEDTIME [facility] Last Admin: 08/05/25 21:12 Dose: 75 mg Documented By: CAROLINA Sertraline HCl (Sertraline Hcl 100 Mg Tablet) 100 mg PO DAILY [facility] Last Admin: 08/06/25 08:27 Dose: 100 mg Documented By: KIERRA Sodium Chloride (0.9 % Sodium Chloride Flush 3 Ml Syringe) 3 ml IVFLUSH QSHIFT [facility] Last Admin: 08/06/25 17:53 Dose: 3 ml Documented By: KIERRA Labs 08/05/25 03:23 08/06/25 05:49 Labs: Laboratory Results - last 24 hr 08/05/25 08/06/25 18:13 05:49 Hold Purple Top SEE NOTE Anion Gap 12 9 L Estim Creat Clear Calc 112.5 128.5 Estimated GFR > 60 > 60 Random Glucose 108 89 Calcium 8.4 8.5 Phosphorus 1.1 L 1.3 L Magnesium 1.3 L* Assessment and Plan (1) Alcohol withdrawal syndrome: Status: Acute Plan ETOH abuse ETOH withdrawal High anion gap metabolic acidosis Alcoholic ketoacidosis PLAN - phenobarbital protocol - Valium IV p.r.n. - thiamine b.i.d. IV - folic acid - multivitamins - encourage p.o. intake and fluid intake - addiction medicine consult - naltrexone on discharge Prolonged QTC Hypokalemia Hypomagnesemia Hypophosphatemia Significant electrolyte abnormalities noted. Continue to monitor closely PLAN - check magnesium daily, replenish as necessary; given 2 g IV today, will start on oral supplementation b.i.d. - check phosphorus daily - check potassium daily - cardiac telemetry - encourage p.o. intake and fluids Alcoholic hepatitis Elevated LFTs Likely 2/2 EtOH abuse. Right upper quadrant pain the patient was describing has resolved Essential HTN Continue amlodipine MDD NATALIO Continue sertraline Continue quetiapine Hold off hydroxyzine Tarry stool Stool occult -ve Stool regular today Monitor CBC Quality Stroke Does the patient have a stroke diagnosis?: No VTE Prior VTE?: No VTE Risk Level:: Medical - moderate - high VTE Device Contraindication: N/A - Device Ordered VTE Drug Contraindication: Treatment Not Indicated
[2025-08-06 18:59] VITALS: BP 131/87; PULSE 106; RESP 16; TEMP 37.2; O2SAT 100
[2025-08-06 22:56] VITALS: PULSE 100; RESP 16; TEMP 37.3; O2SAT 99
[2025-08-06 23:41] VITALS: BP 134/82
[2025-08-07 02:47] VITALS: BP 152/98; PULSE 96; RESP 16; TEMP 36.9; O2SAT 99
[2025-08-07 07:07] LABS: Albumin Level 3.6 g/dL (3.5-5.0); Calcium 8.5 mg/dL (8.4-10.2); Chloride 99 mmol/L (96-108); Estimated Glomerular Filt Rate > 60; Magnesium 1.6 mg/dL (1.6-2.6); Potassium 3.0 mmol/L (3.3-5.1); Sodium 133 mmol/L (135-145)
[2025-08-07 07:26] VITALS: BP 132/89; PULSE 90; RESP 18; TEMP 36.5; O2SAT 99
[2025-08-07 08:00] LABS: Alanine Aminotransferase 96 U/L (0-31); Alkaline Phosphatase 140 U/L (39-117); Anion Gap 11 (12-20); Aspartate Amino Transferase 246 U/L (5-31); Blood Urea Nitrogen 4 mg/dL (9-16); Carbon Dioxide 26 mmol/L (22-29); Creatinine Clr Calc Pharmacy 145.2; Total Protein 6.0 g/dL (6.5-8.0)
[2025-08-07 08:27] VITALS: BP 132/89
[2025-08-07] MEDS: Sodium,Potassium Phosphates POWD.PACK 2 PACKET PO (08:27)
[2025-08-07] MEDS: 0.9 % Sodium Chloride Flush 3 ML SYRINGE IVFLUSH (08:28)
[2025-08-07] MEDS: Nicotine 21 MG PATCH.TD24 TRANSDERMA (09:13)
--- NOTE | 2025-08-07 09:33 | P.DS_ITS ---
DS: Providers Provider Date of Service: 08/07/25 Date of admission: 08/04/25 21:23 Date of discharge: 08/07/25 Primary care physician: Parrish Rice III, MD Consults: 08/04/25 21:50 Addiction Medicine Provider Routine Consulting Provider: Addiction Covering Reason for consultation: Alcohol abuse Has provider been notified: No DS: Diagnosis Discharge Diagnosis (1) Alcohol use disorder, severe, dependence: Status: Acute DS: Summary Hospital Course Hospital Course: From admission HPI: Date of Service: 08/04/25 Attending physician on admission: Lorena Weiner Chief Complaint: Tarry stool, alcohol withdrawal Margaret Branch is a 45 years old woman with past medical history significant for alcohol abuse, PTSD, anxiety disorder and essential hypertension presents to the emergency department complaining of tarry stools, generalized abdominal discomfort and dry heave. She also reported withdrawal symptoms such as anxiety, chest pain, shortness on breath and palpitations. She drinks at least 9 beers daily and also smoked marijuana. Denied confusion and hallucinations. Denied illicit drug use. No hx of seizures. In the ED, she was initially found to have sinus tachycardia, other vital signs are stable. CBC is unremarkable. Sodium 134, potassium 2.6, CO2 16, anion gap 24, BUN 6 and creatinine 0.63. LFTs are elevated. Calcium is normal. Troponin 7.1, albumin 3.7, lipase 71 and test 3. ED tx: LR 1 L bolus, potassium chloride 40 mEq p.o., phenobarbital protocol started, thiamine 200 mg IV, Valium 5 mg IV, Protonix 40 mg IV Hospital course Pt was admitted to the hospital for multiple electrolyte abnormalities in the setting of acute alcohol withdrawal. Pt was started on phenobarb protocol and electrolytes were supplemented as necessary. CIWA remained low during hospital stay. Pt had reported dark and tarry stools, but stool was negative for occult blood and H&H stable and around baseline. Patient's hospital stay was overall uncomplicated, the pt repeatedly requested to be discharged starting yesterday morning. Pt did agree to stay for 1 additional day due to hypomagnesemia. Patient's potassium was mildly low as was her phosphorus, and she was given K- Phos just prior to discharge. Was seen by addiction medicine who made arrangements for outpatient services. She will be discharged on multivitamin, thiamine, folic acid, and magnesium oxide. She is strongly encouraged to abstain from alcohol use in use whatever familial, social, and community services she can in order to maintain her sobriety. She should continue all of her other home medications. Time Attestation Discharge Coordination Time (in mins): 35 Quality: Safe Use of Opioids Does Pt have an Active Cancer Diagnosis on the Problem List?: No Quality: Stroke Does the patient have a stroke diagnosis?: No Physical Exam Exam: Exam: General: AOx3, no acute distress Resp: CTA bilaterally CVS: S1, S2, RRR GI: +BS, NT, no distention Skin: Warm, dry Neuro: Cranial nerves II-XII grossly intact bilaterally. Motor grossly intact bilaterally. No upper extremity tremors noted. Extremities: No edema Psych: Anxious, dressed in street clothes and eager to be discharged Vital Signs: Vital Signs: Last Vital Signs Temp 97.7 F 08/07/25 07:26 Pulse 90 08/07/25 07:26 Resp 18 08/07/25 07:26 BP 132/89 08/07/25 08:27 Pulse Ox 99 08/07/25 07:26 O2 Del Method Room Air 08/07/25 07:26 BMI result Body Mass Index 27.2 DS: Data Data Completed and Pending Labs on day of discharge: Laboratory Results - last 24 hr 08/07/25 06:11 Sodium 133 L Potassium 3.0 L Chloride 99 Carbon Dioxide 26 Anion Gap 11 L BUN 4 L Creatinine 0.54 Estim Creat Clear Calc 145.2 Estimated GFR > 60 Random Glucose 120 H Calcium 8.5 Phosphorus 1.4 L Magnesium 1.6 Total Bilirubin 0.8 AST 246 H ALT 96 H Alkaline Phosphatase 140 H Total Protein 6.0 L Albumin 3.6 Discharge Plan Discharge Anticipated Discharge Date/Time: 08/07/25 09:07 Patient Disposition: Home, Self-Care Discharge Diagnosis: Alcohol withdrawal Referrals: [facility] [Provider Group, Addiction Medicine] - 08/09/25 1:00 pm Referral Note: Please attend your intake appointment on 08/09/2025 @ Parrish Olguin III, MD [Primary Care Provider, Medical] - 1 Week Discharge Medications: New magnesium oxide 200 mg magnesium tablet 200 mg PO BID Qty: 180 0RF Rx Instructions: Take one tablet twice a day multivitamin Tablet 1 tab PO DAILY Qty: 90 0RF Rx Instructions: Take one tablet daily thiamine HCl (vitamin B1) 100 mg capsule 100 mg PO DAILY Qty: 90 0RF Rx Instructions: Take on capsule daily folic acid 1 mg tablet 1 mg PO DAILY Qty: 90 0RF Rx Instructions: Take one tablet daily Continued quetiapine 25 mg tablet 75 mg PO BEDTIME sertraline 100 mg tablet 100 mg PO DAILY amlodipine 5 mg tablet 5 mg PO DAILY hydroxyzine HCl 25 mg tablet 25 mg PO TID PRN (Reason: anxiety) trazodone 100 mg tablet 100 mg PO BEDTIME PRN (Reason: insomnia) Discharge Orders: Discharge Order (Routine); Ordered 08/07/25 Ordered By: Diamond Nunes Activity on Discharge: As tolerated Stand Alone Forms: Patient Portal Discharge page Print Language: Macedonian Care Plan Goals: See below Health Concerns: Alcohol use disorder Electrolyte abnormalities Alcohol withdrawal Plan of Treatment: You were admitted to hospital and treated for acute alcohol withdrawal with phenobarb protocol. You initially complained of dark and tarry stools, but your stool was negative for occult blood and blood levels were stable you underwent an ultrasound which showed no evidence infected gallbladder but did show hepatic steatosis likely secondary to chronic alcohol use. You had multiple electrolyte abnormalities, including low sodium, potassium, and phosphorus which were repleted. CIWA score has been low on phenobarb protocol. You were seen and evaluated by addiction medicine and have made arrangements for outpatient services. Your are very anxious to leave and wish to be discharged as soon as possible. You will be discharged on supplementations, including multivitamin, thiamine, folic acid, and magnesium oxide which he should take as directed. -- take multivitamin, thiamine, and folic acid daily; take magnesium oxide twice daily -- you were strongly suggested to abstain from alcohol use. Use whatever familial, social, and community services that you can to maintain her sobriety. -- follow up with PCP in 1 week for routine labs including CBC, BMP, and phosphorus -- you can resume all of your other home medications Assessment: See discharge summary
--- NOTE | 2025-08-07 09:55 | MHC.CM.PN ---
Patient has been medically cleared for dc to home today, self care.
== END 2025-08-07 10:16 | disposition home or self-care (01) | DRG 775 ==
LOC: HO.ED 19:55 → HO.EDOVER 21:31 → HO.IMC 08-05 19:38 → HO.EDOVER 08-06 19:29 → HO.IMC 08-06 19:30
PROVIDERS: Hospitalist; Admitting Provider Internal Medicine; Emergency Provider Emergency Medicine; PCP Internal Medicine; Visit Provider Student in an Organized Health Care Education/Training Program
DX: F10.239 Alcohol dependence with withdrawal, unspecified (principal); E87.29 Other acidosis; E83.39 Other disorders of phosphorus metabolism; K70.10 Alcoholic hepatitis without ascites; F17.210 Nicotine dependence, cigarettes, uncomplicated; E83.42 Hypomagnesemia; F39 Unspecified mood [affective] disorder; Y90.7 Blood alcohol level of 200-239 mg/100 ml; E87.6 Hypokalemia; R94.31 Abnormal electrocardiogram [ECG] [EKG]; I10 Essential (primary) hypertension; F41.1 Generalized anxiety disorder; F32.9 Major depressive disorder, single episode, unspecified; Z71.6 Tobacco abuse counseling; Z79.899 Other long term (current) drug therapy
CPT/HCPCS: 36415; 76705; 80048; 80053; 80076; 80307; 81003; 82010; 82272; 82803; 83605; 83690; 83735; 84100; 84484; 84702; 85025; 85610; 86850; 86900; 86901; 93005; 99285; J2470; J2560; J3360; J3411; J3475; J3480; J7120; S9485

== ENCOUNTER → 2025-08-04 18:27 | Outpatient (BNV) | payer OTHER, SELFPAY | PROVIDERS: Admitting Provider Internal Medicine; Emergency Provider Emergency Medicine; PCP Internal Medicine; Visit Provider Internal Medicine | DX: R00.0 Tachycardia, unspecified (principal); R94.31 Abnormal electrocardiogram [ECG] [EKG]; Z13.6 Encounter for screening for cardiovascular disorders | CPT/HCPCS: 93010 ==

== ENCOUNTER 2025-08-04 21:23 | Outpatient (BNV) | payer OTHER, SELFPAY | END 2025-08-05 08:00 | PROVIDERS: Admitting Provider Internal Medicine; Emergency Provider Emergency Medicine; PCP Internal Medicine; Visit Provider Internal Medicine Cardiovascular Disease | DX: I21.09 ST elevation (STEMI) myocardial infarction involving other coronary artery of anterior wall (principal) | CPT/HCPCS: 93010 ==

== ENCOUNTER → 2025-08-04 21:23 | Outpatient (BNV) | payer OTHER, SELFPAY | PROVIDERS: Admitting Provider Internal Medicine; Emergency Provider Emergency Medicine; PCP Internal Medicine; Visit Provider Nurse Practitioner Psychiatric/Mental Health | DX: F10.20 Alcohol dependence, uncomplicated (principal) | CPT/HCPCS: 99221 ==

== ENCOUNTER → 2025-08-04 21:23 | Outpatient (BNV) | payer OTHER, SELFPAY | PROVIDERS: Admitting Provider Internal Medicine; Emergency Provider Emergency Medicine; PCP Internal Medicine; Visit Provider Internal Medicine | DX: F10.20 Alcohol dependence, uncomplicated (principal) | CPT/HCPCS: 99223; 99233; 99239 ==